=== PATIENT | female | born 1935 | race Caucasian/White ===

== ENCOUNTER 2016-06-25 14:39 | Emergency (ER) | payer MEDICARE, BC ==
[2016-06-25] MEDS ORDERED: SODIUM CHLORIDE 0.9% 500 ML IV STA (15:33)
[2016-06-25] MEDS ORDERED: METOPROLOL TARTRATE 5 MG/5 ML VIAL IVP STA ×3 (15:34→18:08)
[2016-06-25] MEDS ORDERED: LORazepam 2 MG/ML SYRINGE IV STA (15:35)
--- NOTE | 2016-06-25 15:43 | ED ---
General Adult HPI <VirgilThang - Last Filed: 06/25/16 19:30> - General Source: patient, RN notes reviewed Mode of arrival: ambulatory Limitations: no limitations <Bel Macias - Last Filed: 06/25/16 19:38> - General Chief complaint: Recheck/Abnormal Lab/Rx Stated complaint: High Blood Pressure Time Seen by Provider: 06/25/16 15:23 - History of Present Illness Initial comments: 80-year-old female presents to the emergency department with a chief complaint of hypertension. Patient states that she's been having HTN for the last few months. Patient states that she has been working with her doctor that he has been changing her medicine. Patient states her blood pressures have been doing okay but over the last she's noticed some increase in today went up to 200 so she thought she should be seen. Patient states she doesn't have any pain. Patient states that she hasn't had any fever or chills with this. Patient states her the there has been some increased stress. Patient states she just wanted make sure that everything was okay.Patient denies any recent fever, chills, shortness of breath, chest pain, back pain, abdominal pain, nausea vomiting, numbness or tingling, dysuria or hematuria, constipation or diarrhea, headaches or visual changes, or any other current symptoms. (Bel Macias) - Related Data Home Medications Medication Instructions Recorded Confirmed ALPRAZolam [Xanax] 0.25 mg PO DAILY PRN 06/25/16 06/25/16 Atenolol [Tenormin] 25 mg PO DAILY 06/25/16 06/25/16 Focus Macula Pro Vitamin 1 tab PO DAILY 06/25/16 06/25/16 Irbesartan 75 mg PO BID 06/25/16 06/25/16 Levothyroxine Sodium [Synthroid] 88 mcg PO DAILY 06/25/16 06/25/16 amLODIPine [Norvasc] 5 mg PO DAILY 06/25/16 06/25/16 hydrALAZINE HCL 25 mg PO TID 06/25/16 06/25/16 Allergies Allergy/AdvReac Type Severity Reaction Status Date / Time doxycycline Allergy Dizziness Verified 06/25/16 16:15 CAMILO Inhibitors AdvReac Flushed Verified 06/25/16 16:15 Review of Systems ROS Other: All systems not noted in ROS Statement are negative. <Thang Herman - Last Filed: 06/25/16 19:30> ROS Other: All systems not noted in ROS Statement are negative. <Bel Macias - Last Filed: 06/25/16 19:38> ROS Statement: Those systems with pertinent positive or pertinent negative responses have been documented in the HPI. Past Medical History Past Medical History: Hypertension, Thyroid Disorder History of Any Multi-Drug Resistant Organisms: None Reported Past Surgical History: Cholecystectomy, Orthopedic Surgery, Tonsillectomy Additional Past Surgical History / Comment(s): Left rotator cuff surgery; Thyroid Surgery Past Psychological History: No Psychological Hx Reported Smoking Status: Never smoker Past Alcohol Use History: None Reported Past Drug Use History: None Reported <Bel Macias - Last Filed: 06/25/16 19:38> General Exam <Thang Herman - Last Filed: 06/25/16 19:30> Limitations: no limitations <Bel Macias - Last Filed: 06/25/16 19:38> - General Exam Comments Initial Comments: General: The patient is awake and alert, in no distress, and does not appear acutely ill. Eye: Pupils are equal, round and reactive to light, extra-ocular movements are intact; there is normal conjunctiva bilaterally. No signs of icterus. Ears, nose, mouth and throat: There are moist mucous membranes and no oral lesions. Neck: The neck is supple, there is no tenderness. Cardiovascular: There is a regular rate and rhythm. No murmur, rub or gallop is appreciated. Respiratory: Lungs are clear to auscultation, respirations are non-labored, breath sounds are equal. No wheezes, stridor, rales, or rhonchi. Gastrointestinal: Soft, non-distended, non-tender abdomen without masses or organomegaly noted. There is no rebound or guarding present. No CVA tenderness. Bowel sounds are unremarkable. Back: There is no tenderness to palpation in the midline. There is no obvious deformity. No rashes noted. Musculoskeletal: Normal ROM, no tenderness, There is no pedal edema. There is no calf tenderness or swelling. Sensation intact. Pulses equal bilaterally 2+. Neurological: CN II-XII intact, There are no obvious motor or sensory deficits. Coordination appears grossly intact. Speech is normal. Skin: Skin is warm and dry and no rashes or lesions are noted. Psychiatric: Cooperative, appropriate mood & affect, normal judgment. (Bel Macias) Course <Thang Herman - Last Filed: 06/25/16 19:30> <Bel Macias - Last Filed: 06/25/16 19:38> Vital Signs 06/25/16 06/25/16 06/25/16 14:51 16:23 16:55 Temperature 97.1 F L Pulse Rate 86 70 68 Respiratory 18 18 16 Rate Blood Pressure 205/97 200/96 183/86 O2 Sat by Pulse 96 9 L 98 Oximetry 06/25/16 06/25/16 06/25/16 17:11 17:47 18:37 Temperature Pulse Rate 69 65 70 Respiratory 16 18 16 Rate Blood Pressure 188/91 181/84 157/74 O2 Sat by Pulse 99 95 Oximetry - Reevaluation(s) Reevaluation #1: 06/25/16 17:52 While doing blood pressures there was a noticeable 20 point describing CBC and the left arm and the right arm. A CT of the aorta was ordered. (Bel Macias) Reevaluation #2: 06/25/16 17:53 Patient was over ordered Lopressor to help with blood pressure that did not improve the patient's blood pressure. At this time we will add hydralazine and repeat the blood pressure. (Bel Macias) Reevaluation #3: 06/25/16 19:36 This time patient's blood pressure has improved. 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 Patient was reevaluated by myself, Dr. Herman. Patient states her back discomfort was above the left CVA region and mild. Patient denies ever having any abdominal discomfort or right leg problems. Right femoral and dorsalis pedis and posterior tibial pulses 2/4 bilateral. Refill less than 2 seconds. Good strength. Case was discussed in detail with vascular surgeon, Dr. Hassan. She does not feel this is emergent and will follow-up with the patient in the office. (Thang Herman) 80-year-old female presents emergency Department chief complaint of hypertension. At this time the blood pressure has improved. A CAT scan was reviewed that does show a dissection at the iliac. However there is flow going and Dr. Ryland lisa was contacted who states that they can follow up with the outpatient vascular in the next week. The patient was discussed with this. We discussed continuing to support pressure medication and following up with her doctor regarding hypertension. The patient stated that she understood and is in agreement with the plan. Patient will be discharged. (Bel Macias) - Lab Data Lab Results 06/25/16 06/25/16 06/25/16 Range/Units 16:22 16:22 17:39 WBC 6.3 (3.8-10.6) k/uL RBC 5.11 (3.80-5.40) m/uL Hgb 14.4 (11.4-16.0) gm/dL Hct 44.4 (34.0-46.0) % MCV 86.9 (80.0-100.0) fL MCH 28.2 (25.0-35.0) pg MCHC 32.5 (31.0-37.0) g/dL RDW 14.0 (11.5-15.5) % Plt Count 179 (150-450) k/uL Neutrophils % 77 % Lymphocytes % 4 % Monocytes % 9 % Eosinophils % 8 % Basophils % 1 % Neutrophils # 4.9 (1.3-7.7) k/uL Lymphocytes # 0.3 L (1.0-4.8) k/uL Monocytes # 0.5 (0-1.0) k/uL Eosinophils # 0.5 (0-0.7) k/uL Basophils # 0.0 (0-0.2) k/uL Sodium 144 (137-145) mmol/L Potassium 3.8 (3.5-5.1) mmol/L Chloride 104 (98-107) mmol/L Carbon Dioxide 29 (22-30) mmol/L Anion Gap 11 mmol/L BUN 16 (7-17) mg/dL Creatinine 0.82 (0.52-1.04) mg/dL Est GFR (MDRD) Af Amer >60 (>60 ml/min/1.73 sqM) Est GFR (MDRD) Non-Af >60 (>60 ml/min/1.73 sqM) Glucose 97 (74-99) mg/dL Calcium 9.7 (8.4-10.2) mg/dL Total Bilirubin 0.6 (0.2-1.3) mg/dL AST 56 H (14-36) U/L ALT 58 H (9-52) U/L Alkaline Phosphatase 108 (38-126) U/L Total Protein 7.8 (6.3-8.2) g/dL Albumin 4.4 (3.5-5.0) g/dL Urine Color Light Yellow Urine Appearance Clear (Clear) Urine pH 7.0 (5.0-8.0) Ur Specific [place] 1.005 (1.001-1.035) Urine Protein Trace H (Negative) Urine Glucose (UA) Negative (Negative) Urine Ketones Negative (Negative) Urine Blood Negative (Negative) Urine Nitrate Negative (Negative) Urine Bilirubin Negative (Negative) Urine Urobilinogen <2.0 (<2.0) mg/dL Ur Leukocyte Esterase Negative (Negative) Disposition <Thang Herman - Last Filed: 06/25/16 19:30> Time of Disposition: 19:38 <Bel Macias - Last Filed: 06/25/16 19:38> Clinical Impression: Hypertension, Iliac artery dissection Disposition: HOME SELF-CARE Condition: Stable Instructions: Hypertension (ED) Additional Instructions: Please use medication as discussed. Please follow up with family doctor if symptoms have not improved over the next two days. Please return to the emergency room if your symptoms increase or worsen or for any other concerns. Referrals: Barrett Taveras MD [Primary Care Provider] - 1-2 days Shannan aHssan MD [STAFF PHYSICIAN] - 1-2 days
[2016-06-25 16:40] LABS: Basophils % (A) 1 %; CH 28.9; CHCM 33.3; Eosinophils # (A) 0.5 k/uL (0-0.7); Eosinophils % (A) 8 %; HCT 44.4 % (34.0-46.0); HDW 2.38; HGB 14.4 gm/dL (11.4-16.0); Luc # (Auto) 0.07; Luc % (Auto) 1; Lymphocytes # (A) 0.3 k/uL (1.0-4.8); Lymphocytes % (A) 4 %; MCH 28.2 pg (25.0-35.0); MCHC 32.5 g/dL (31.0-37.0); MCV 86.9 fL (80.0-100.0); Mean Platelet Volume 6.7; Monocytes # (A) 0.5 k/uL (0-1.0); Monocytes % (A) 9 %; Neutrophils # (A) 4.9 k/uL (1.3-7.7); Neutrophils % (A) 77 %; RBC 5.11 m/uL (3.80-5.40); WBC 6.3 k/uL (3.8-10.6); WBC (Perox) 6.69
[2016-06-25 16:51] LABS: ALT 58 U/L (9-52); AST 56 U/L (14-36); Alkaline Phosphatase 108 U/L (38-126); Anion Gap 11 mmol/L; Blood Urea Nitrogen 16 mg/dL (7-17); Calcium 9.7 mg/dL (8.4-10.2); Carbon Dioxide 29 mmol/L (22-30); Chloride 104 mmol/L (98-107); Glucose 97 mg/dL (74-99); Non-African American GFR(MDRD) >60 (>60 ml/min/1.73 sqM); Potassium 3.8 mmol/L (3.5-5.1); Sodium 144 mmol/L (137-145); Total Bilirubin 0.6 mg/dL (0.2-1.3); Total Protein 7.8 g/dL (6.3-8.2)
[2016-06-25] MEDS ORDERED: ACETAMINOPHEN TAB 500 MG TAB PO STA (16:56)
[2016-06-25] MEDS ORDERED: METOPROLOL TARTRATE 5 MG/5 ML VIAL IVP SCH ×2 (17:00→18:00)
[2016-06-25] MEDS ORDERED: RX INFO: IV CONTRAST WAS GIVEN 1 EACH MISC MISCELLANE PRN (17:46)
[2016-06-25 17:47] LABS: Appearance,Urine Clear (Clear); Bilirubin,Urine Negative (Negative); Glucose,Urine (UA) Negative (Negative); Ketones,Urine Negative (Negative); Leukocyte Esterase,Urine Negative (Negative); Nitrite,Urine Negative (Negative); Protein,Urine Trace (Negative); Specific Gravity,Urine 1.005 (1.001-1.035); UA Billing (MACRO vs. MICRO) CHEM; Urobilinogen,Urine <2.0 mg/dL (<2.0)
[2016-06-25] MEDS ORDERED: hydrALAZINE HCL 20 MG/ML 1 ML VIAL IVP STA (17:49)
--- NOTE | 2016-06-25 18:58 | CT ---
CT thoracic and abdominal aorta HISTORY: Hypertension, chest pain Helical acquisition through the chest pre- and post administration of 100 cc Omni 350 IV. Three-dimen sional reconstructions performed on an alternate workstation Interstitial changes are present within the lungs. Coronary artery calcifications are present. Abdominal aorta measures approximately 3.5 cm at the root, 3.4 cm in the ascending aorta, 2.6 cm prox imal descending aorta, 2.4 cm at the aortic hiatus. The infrarenal abdominal aorta measures approxima tely 2.0 cm in greatest dimension, common iliac artery on the right measures 19 mm proximally, limite d dissection is suspected at this level, the common iliac artery proximally on the right. Proximal il iac artery on the left measures 12 mm. External and internal iliac arteries are present are patent pr oximally. The inferior mesenteric artery is thought to be occluded proximally. Superior mesenteric ar lisa, celiac axis, renal arteries are patent. Supraaortic branch vessels are patent, there is a three -vessel arch. 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
[2016-06-25 20:01] VITALS: BP 156/82; PULSE 69; RESP 20; TEMP 98.2
== END 2016-06-25 20:02 | disposition home or self-care (01) ==
LOC: EC 14:39
DX: I10 Essential (primary) hypertension (principal); I77.72 Dissection of iliac artery; Z79.899 Other long term (current) drug therapy; Z88.1 Allergy status to other antibiotic agents; Z88.8 Allergy status to other drugs, medicaments and biological substances
CPT/HCPCS: 99284; 96374; 96375; 96376; 96361; 36415; 80053; 85025; 81003; 75635; 71275; J2060; Q9967

== ENCOUNTER 2017-12-12 22:09 | Inpatient (IN) | payer MEDICARE, BC ==
[2017-12-13] MEDS ORDERED: ACETAMINOPHEN TAB 325 MG TAB PO STA (00:36)
[2017-12-13] MEDS ORDERED: SODIUM CHLORIDE 0.9% 1,000 ML IV ONE ×2 (00:36→09:59)
[2017-12-13] MEDS ORDERED: ONDANSETRON 4 MG/2 ML VIAL IVP STA (00:36)
--- NOTE | 2017-12-13 00:54 | ED ---
General Adult HPI - General Chief complaint: Nausea/Vomiting/Diarrhea Stated complaint: vomiting/fever Time Seen by Provider: 12/13/17 00:18 Source: patient Mode of arrival: wheelchair Limitations: no limitations - History of Present Illness Initial comments: 82-year-old female patient presents the emergency department today for evaluation of vomiting, burning upper abdominal pain, and fever. Patient states that she developed burning upper abdominal pain earlier in the day. States that she had to poached eggs for dinner and after that started to have vomiting. Patient states that she has vomited 2-3 times. Patient states she continues to have burning upper abdominal pain. States she is having generalized body aches. States that she has not taken anything for pain or fever. States she has not had any diarrhea with this. Denies any hematemesis. States that she has had a cholecystectomy but no other surgeries to her abdomen. Patient denies any cough, nasal congestion, sore throat, ear pain, chest pain, or shortness of breath. Patient denies any recent rash, numbness, tingling, dizziness, weakness, hematuria, dysuria, urinary urgency, urinary frequency, headache, visual changes, or any other complaints. - Related Data Home Medications Medication Instructions Recorded Confirmed ALPRAZolam [Xanax] 0.25 mg PO DAILY PRN 06/25/16 12/13/17 Atenolol [Tenormin] 25 mg PO DAILY 06/25/16 06/25/16 Focus Macula Pro Vitamin 1 tab PO DAILY 06/25/16 12/13/17 Irbesartan 75 mg PO BID 06/25/16 12/13/17 Levothyroxine Sodium [Synthroid] 88 mcg PO DAILY 06/25/16 12/13/17 amLODIPine [Norvasc] 5 mg PO DAILY 06/25/16 12/13/17 hydrALAZINE HCL 25 mg PO TID 06/25/16 12/13/17 Atorvastatin [Lipitor] 20 mg PO DAILY 12/13/17 12/13/17 Carvedilol [Coreg*] 12/13/17 Allergies Allergy/AdvReac Type Severity Reaction Status Date / Time clindamycin Allergy Nausea & Verified 12/12/17 22:39 Vomiting & Diarrhea doxycycline Allergy Dizziness Verified 12/12/17 22:37 sulfamethoxazole Allergy Unknown Verified 12/12/17 22:39 [From Bactrim] trimethoprim [From Bactrim] Allergy Unknown Verified 12/12/17 22:39 CAMILO Inhibitors AdvReac Flushed Verified 12/12/17 22:37 Review of Systems ROS Statement: Those systems with pertinent positive or pertinent negative responses have been documented in the HPI. ROS Other: All systems not noted in ROS Statement are negative. Past Medical History Past Medical History: Hypertension, Thyroid Disorder History of Any Multi-Drug Resistant Organisms: None Reported Past Surgical History: Cholecystectomy, Orthopedic Surgery, Tonsillectomy Additional Past Surgical History / Comment(s): Left rotator cuff surgery; Thyroid Surgery Past Psychological History: No Psychological Hx Reported Smoking Status: Never smoker Past Alcohol Use History: None Reported Past Drug Use History: None Reported General Exam Limitations: no limitations General appearance: alert, in no apparent distress, other (This is a well- developed, well-nourished elderly female patient in no acute distress. Vital signs upon presentation are temperature 100F, pulse 102, respirations 18, blood pressure 182/77, pulse ox 93% on room air.) Eye exam: Present: normal appearance, PERRL, EOMI. Absent: scleral icterus, conjunctival injection, periorbital swelling ENT exam: Present: normal exam, normal oropharynx, mucous membranes moist, TM's normal bilaterally Neck exam: Present: normal inspection. Absent: tenderness, meningismus, lymphadenopathy Respiratory exam: Present: normal lung sounds bilaterally. Absent: respiratory distress, wheezes, rales, rhonchi, stridor Cardiovascular Exam: Present: regular rate, normal rhythm, normal heart sounds. Absent: systolic murmur, diastolic murmur, rubs, gallop, clicks GI/Abdominal exam: Present: soft, tenderness (Midepigastric tenderness. Right lower quadrant tenderness.), normal bowel sounds. Absent: distended, guarding, rebound, rigid Neurological exam: Present: alert, oriented X3, CN II-XII intact Psychiatric exam: Present: normal affect, normal mood Skin exam: Present: warm, dry, intact, normal color. Absent: rash Course Vital Signs 12/12/17 12/13/17 12/13/17 22:40 02:28 03:19 Temperature 100 F H 99.4 F 99.4 F Pulse Rate 102 H 82 86 Respiratory 18 18 18 Rate Blood Pressure 182/77 164/72 154/67 O2 Sat by Pulse 93 L 97 97 Oximetry EKG Findings - EKG Comments: EKG Findings:: EKG was obtained at 0105 shows normal sinus rhythm with a ventricular rate of 94, MT interval 170, QRS duration 84, QT 364, QTC 455. No evidence of ST elevation or depression. Medical Decision Making - Medical Decision Making 82-year-old female patient presented to the emergency department today for evaluation of vomiting, fever, and abdominal discomfort. Physical examination did reveal tenderness over McBurney's point. Labs reviewed and showed an elevated white blood cell count of 14,000. CT of the abdomen and pelvis was obtained and did show some inflammatory changes involving the cecum but no definite appendicitis. My attending Dr. Ramsey did discuss the case with the surgeon on-call Dr. Buenrostro who agrees to admit patient for further evaluation. Patient be started on Zosyn. She will be made nothing by mouth. Discussed results and findings with the patient, she verbalizes understanding and agrees with this plan. - Lab Data Result diagrams: 12/13/17 00:45 12/13/17 00:45 Lab Results 12/13/17 12/13/17 12/13/17 Range/Units 00:45 00:45 00:45 WBC 14.7 H (3.8-10.6) k/uL RBC 4.47 (3.80-5.40) m/uL Hgb 12.6 (11.4-16.0) gm/dL Hct 38.6 (34.0-46.0) % MCV 86.4 (80.0-100.0) fL MCH 28.2 (25.0-35.0) pg MCHC 32.7 (31.0-37.0) g/dL RDW 13.9 (11.5-15.5) % Plt Count 154 (150-450) k/uL Neutrophils % 92 % Lymphocytes % 2 % Monocytes % 5 % Eosinophils % 1 % Basophils % 0 % Neutrophils # 13.4 H (1.3-7.7) k/uL Lymphocytes # 0.3 L (1.0-4.8) k/uL Monocytes # 0.7 (0-1.0) k/uL Eosinophils # 0.1 (0-0.7) k/uL Basophils # 0.0 (0-0.2) k/uL PT (9.0-12.0) sec INR (<1.2) APTT (22.0-30.0) sec Sodium 140 (137-145) mmol/L Potassium 3.9 (3.5-5.1) mmol/L Chloride 104 (98-107) mmol/L Carbon Dioxide 25 (22-30) mmol/L Anion Gap 11 mmol/L BUN 40 H (7-17) mg/dL Creatinine 1.20 H (0.52-1.04) mg/dL Est GFR (CKD-EPI)AfAm 48 (>60 ml/min/1.73 sqM) Est GFR (CKD-EPI)NonAf 42 (>60 ml/min/1.73 sqM) Glucose 132 H (74-99) mg/dL Plasma Lactic Acid Edvin (0.7-2.0) mmol/L Calcium 9.7 (8.4-10.2) mg/dL Total Bilirubin 0.6 (0.2-1.3) mg/dL AST 25 (14-36) U/L ALT 35 (9-52) U/L Alkaline Phosphatase 70 (38-126) U/L Total Creatine Kinase 91 (30-135) U/L CK-MB (CK-2) 0.6 (0.0-2.4) ng/mL CK-MB (CK-2) Rel Index 0.7 Troponin I <0.012 (0.000-0.034) ng/mL Total Protein 7.1 (6.3-8.2) g/dL Albumin 4.4 (3.5-5.0) g/dL Amylase 67 (30-110) U/L Lipase 175 (23-300) U/L Urine Color Urine Appearance (Clear) Urine pH (5.0-8.0) Ur Specific [place] (1.001-1.035) Urine Protein (Negative) Urine Glucose (UA) (Negative) Urine Ketones (Negative) Urine Blood (Negative) Urine Nitrite (Negative) Urine Bilirubin (Negative) Urine Urobilinogen (<2.0) mg/dL Ur Leukocyte Esterase (Negative) Urine RBC (0-5) /hpf Urine WBC (0-5) /hpf Urine Bacteria (None) /hpf Urine Mucus (None) /hpf 12/13/17 12/13/17 12/13/17 Range/Units 01:02 01:02 02:20 WBC (3.8-10.6) k/uL RBC (3.80-5.40) m/uL Hgb (11.4-16.0) gm/dL Hct (34.0-46.0) % MCV (80.0-100.0) fL MCH (25.0-35.0) pg MCHC (31.0-37.0) g/dL RDW (11.5-15.5) % Plt Count (150-450) k/uL Neutrophils % % Lymphocytes % % Monocytes % % Eosinophils % % Basophils % % Neutrophils # (1.3-7.7) k/uL Lymphocytes # (1.0-4.8) k/uL Monocytes # (0-1.0) k/uL Eosinophils # (0-0.7) k/uL Basophils # (0-0.2) k/uL PT 10.1 (9.0-12.0) sec INR 1.0 (<1.2) APTT 21.0 L (22.0-30.0) sec Sodium (137-145) mmol/L Potassium (3.5-5.1) mmol/L Chloride (98-107) mmol/L Carbon Dioxide (22-30) mmol/L Anion Gap mmol/L BUN (7-17) mg/dL Creatinine (0.52-1.04) mg/dL Est GFR (CKD-EPI)AfAm (>60 ml/min/1.73 sqM) Est GFR (CKD-EPI)NonAf (>60 ml/min/1.73 sqM) Glucose (74-99) mg/dL Plasma Lactic Acid Edvin 1.0 (0.7-2.0) mmol/L Calcium (8.4-10.2) mg/dL Total Bilirubin (0.2-1.3) mg/dL AST (14-36) U/L ALT (9-52) U/L Alkaline Phosphatase (38-126) U/L Total Creatine Kinase (30-135) U/L CK-MB (CK-2) (0.0-2.4) ng/mL CK-MB (CK-2) Rel Index Troponin I (0.000-0.034) ng/mL Total Protein (6.3-8.2) g/dL Albumin (3.5-5.0) g/dL Amylase (30-110) U/L Lipase (23-300) U/L Urine Color Yellow Urine Appearance Clear (Clear) Urine pH 5.5 (5.0-8.0) Ur Specific [place] 1.014 (1.001-1.035) Urine Protein 1+ H (Negative) Urine Glucose (UA) Negative (Negative) Urine Ketones Trace H (Negative) Urine Blood Negative (Negative) Urine Nitrite Negative (Negative) Urine Bilirubin Negative (Negative) Urine Urobilinogen <2.0 (<2.0) mg/dL Ur Leukocyte Esterase Small H (Negative) Urine RBC 1 (0-5) /hpf Urine WBC 2 (0-5) /hpf Urine Bacteria Rare H (None) /hpf Urine Mucus Rare H (None) /hpf - Radiology Data Radiology results: report reviewed, image reviewed CT of the abdomen and pelvis without contrast was obtained. Report was reviewed in its entirety. Impression by Dr. Lovell shows mild scarring and atelectasis at the posterior lung bases. No renal stone or obstruction. Cardiomegaly. Inflammatory changes in the right mid abdomen posterior to the cecum. This could relate focal colitis. Do not see distinct inflammatory changes involving the appendix. Appendicitis is not entirely excluded. I do not see evidence for renal stone or obstruction. KUB x-ray of the abdomen was obtained. The shoulder near density at the right lung bases. There are clips from cholecystectomy. There is no sign of intestinal structure pneumoperitoneum. Fecal pattern is normal. There are mild lumbar levoscoliosis. Impression by Dr. Lovell shows mild linear infiltrate and atelectasis of the right lung base. Disposition Clinical Impression: Appendicitis Disposition: ADMITTED IP TO THIS [facility] Condition: Serious Decision to Admit Reason: Admit from EC Decision Date: 12/13/17 Decision Time: 02:48
[2017-12-13 00:57] LABS: Basophils % (A) 0 %; Eosinophils # (A) 0.1 k/uL (0-0.7); Eosinophils % (A) 1 %; HCT 38.6 % (34.0-46.0); HGB 12.6 gm/dL (11.4-16.0); Lymphocytes # (A) 0.3 k/uL (1.0-4.8); Lymphocytes % (A) 2 %; MCH 28.2 pg (25.0-35.0); MCHC 32.7 g/dL (31.0-37.0); MCV 86.4 fL (80.0-100.0); Mean Platelet Volume 6.4; Monocytes # (A) 0.7 k/uL (0-1.0); Monocytes % (A) 5 %; Neutrophils # (A) 13.4 k/uL (1.3-7.7); Neutrophils % (A) 92 %; Platelet Count 154 k/uL (150-450); RBC 4.47 m/uL (3.80-5.40); RDW 13.9 % (11.5-15.5); WBC 14.7 k/uL (3.8-10.6)
[2017-12-13 01:10] LABS: Albumin 4.4 g/dL (3.5-5.0); Calcium 9.7 mg/dL (8.4-10.2); Potassium 3.9 mmol/L (3.5-5.1); Total Bilirubin 0.6 mg/dL (0.2-1.3); Total Protein 7.1 g/dL (6.3-8.2)
--- NOTE | 2017-12-13 01:24 | XR ---
EXAMINATION TYPE: XR KUB DATE OF EXAM: 12/13/2017 COMPARISON: NONE HISTORY: Abdominal pain and vomiting TECHNIQUE: 2 views FINDINGS: 2 upright views were obtained and show linear density at the right lung base. There are cli ps from cholecystectomy. There is no sign of intestinal obstruction or pneumoperitoneum. Fecal patter n is normal. There is mild lumbar levoscoliosis. IMPRESSION: There is some linear infiltrate and atelectasis at the right lung base.
[2017-12-13 01:33] LABS: Creatine Kinase 91 U/L (30-135)
[2017-12-13 01:35] LABS: Prothrombin Time 10.1 sec (9.0-12.0)
[2017-12-13 01:45] LABS: Creatine Kinase MB 0.6 ng/mL (0.0-2.4); Troponin I <0.012 ng/mL (0.000-0.034)
--- NOTE | 2017-12-13 02:04 | CT ---
EXAMINATION TYPE: CT abdomen pelvis wo con DATE OF EXAM: 12/13/2017 COMPARISON: None HISTORY: No prior, gen abd pain and vomiting, chronic kidney disease CT DLP: 327.90 mGycm Automated exposure control for dose reduction was used. TECHNIQUE: Helical acquisition of images was performed from the lung bases through the pelvis. FINDINGS: There is subsegmental atelectasis and scarring at the lung bases. Heart is enlarged. There is no angel cardial effusion. There is no pleural effusion. Liver shows no focal defect. There are clips from cholecystectomy. There are small calcified splenic granuloma. There is no evidence of pancreatic mass. There is no adrenal mass. Kidneys have normal size and contour. There is no hydronephrosis. There is no retroperitoneal adenopathy. Abdominal aorta is atheromatous. There is some fat stranding around th e cecum. The appendix however is not dilated. The appendix wall is not thickened. There is small amou nt of fluid in the right paracolic gutter. There is mild thickening of the posterior wall of the cecu m. The terminal ileum appears normal. Bladder distends smoothly. Abdominal aorta is atheromatous. There is no ascites. There is no sign of free air. There are spondylotic changes in the lumbar spine. There is no compression fracture. Uterus is anteverted. I see no pelvic mass. IMPRESSION: THERE IS MILD SCARRING AND ATELECTASIS AT THE POSTERIOR LUNG BASES. NO RENAL STONE OR OBSTRUCTION. CARDIOMEGALY. INFLAMMATORY CHANGES IN THE RIGHT MID ABDOMEN POSTERIOR TO THE CECUM THAT COULD RELATE TO FOCAL COLIT IS. I DO NOT SEE DISTINCT INFLAMMATORY CHANGES INVOLVING THE APPENDIX. APPENDICITIS IS NOT ENTIRELY E XCLUDED. I DO NOT SEE EVIDENCE FOR RENAL STONE OR OBSTRUCTION.
[2017-12-13] MEDS ORDERED: PIPERACILLIN-TAZOBACTAM 3.375 GM in DEXTROSE/WATER 1 50ML.BAG IVPB STA (02:25)
[2017-12-13 02:42] LABS: Appearance,Urine Clear (Clear); Bacteria,Urine Rare /hpf; Bilirubin,Urine Negative (Negative); Blood,Urine Negative (Negative); Color,Urine Yellow; Glucose,Urine (UA) Negative (Negative); Ketones,Urine Trace (Negative); Leukocyte Esterase,Urine Small (Negative); Mucus,Urine Rare /hpf; Nitrite,Urine Negative (Negative); PH, Urine 5.5 (5.0-8.0); Protein,Urine 1+ (Negative); RBC,Urine 1 /hpf (0-5); Specific Gravity,Urine 1.014 (1.001-1.035); Urobilinogen,Urine <2.0 mg/dL (<2.0); WBC,Urine 2 /hpf (0-5)
[2017-12-13] MEDS ORDERED: NALOXONE 0.4 MG/ML 1 ML VIAL IV PRN (02:44)
[2017-12-13] MEDS ORDERED: ONDANSETRON 4 MG/2 ML VIAL IVP PRN (02:44)
[2017-12-13] MEDS ORDERED: SODIUM CHLORIDE 0.9% 1,000 ML IV SCH (02:45)
[2017-12-13 03:52] VITALS: BMI 25.0
[2017-12-13] MEDS ORDERED: ACETAMINOPHEN TAB 325 MG TAB PO PRN (03:54)
[2017-12-13] MEDS ORDERED: metroNIDAZOLE-NS PMX 500 MG in SALINE 1 100ML.BAG IVPB STA (09:59)
[2017-12-13] MEDS ORDERED: LEVOFLOXACIN 500MG-D5W PMX 500 MG in DEXTROSE/WATER 1 100ML.BAG IVPB STA (09:59)
--- NOTE | 2017-12-13 10:11 | P.GSHP ---
History of Present Illness H&P Date: 12/13/17 HPI: Patient presented yesterday with new onset diffuse abdominal pain. She reported on evaluation by the ED team, she had right lower quadrant pain. She had a CT scan performed with findings of colitis where appendicitis could not be excluded her hence admission. She admission, her abdominal pain has moderately improved. Her right lower quadrant pain has also improved. ABDOMEN: Soft, nondistended. Minimal right lower quadrant pain. No peritonitis. STUDIES: CT scan reviewed personally with finding of colitis. Appendix is visualized and without dilation or appendicitis. PLAN: 1. Treatment for colitis described as she has clinically already improved. 2. Start diet. 3. Repeat labs. 4. Likely discharge today pending labs Past Medical History Past Medical History: Hypertension, Thyroid Disorder History of Any Multi-Drug Resistant Organisms: None Reported Past Surgical History: Cholecystectomy, Orthopedic Surgery, Tonsillectomy Additional Past Surgical History / Comment(s): Left rotator cuff surgery; Thyroid Surgery Past Psychological History: No Psychological Hx Reported Smoking Status: Never smoker Past Alcohol Use History: None Reported Past Drug Use History: None Reported - Past Family History Mother Family Medical History: Congestive Heart Failure (CHF) Father Family Medical History: CVA/TIA Medications and Allergies Home Medications Medication Instructions Recorded Confirmed Type ALPRAZolam [Xanax] 0.25 mg PO DAILY PRN 06/25/16 12/13/17 History Focus Macula Pro Vitamin 1 tab PO DAILY 06/25/16 12/13/17 History Irbesartan 75 mg PO BID 06/25/16 12/13/17 History Levothyroxine Sodium [Synthroid] 88 mcg PO DAILY 06/25/16 12/13/17 History amLODIPine [Norvasc] 5 mg PO DAILY 06/25/16 12/13/17 History Atorvastatin [Lipitor] 20 mg PO DAILY 12/13/17 12/13/17 History Carvedilol [Coreg*] 12.5 mg PO HS 12/13/17 12/13/17 History Carvedilol [Coreg*] 25 mg PO QAM 12/13/17 12/13/17 History hydrALAZINE HCL [Apresoline] 20 mg PO BID 12/13/17 12/13/17 History Allergies Allergy/AdvReac Type Severity Reaction Status Date / Time clindamycin Allergy Nausea & Verified 07/11/18 22:39 Vomiting & Diarrhea doxycycline Allergy Dizziness Verified 12/12/17 22:37 sulfamethoxazole Allergy Unknown Verified 12/12/17 22:39 [From Bactrim] trimethoprim [From Bactrim] Allergy Unknown Verified 12/12/17 22:39 CAMILO Inhibitors AdvReac Flushed Verified 12/12/17 22:37 Surgical - Exam Vital Signs Temp Pulse Resp BP Pulse Ox 100 F H 102 H 18 182/77 93 L 12/12/17 22:40 12/12/17 22:40 12/12/17 22:40 12/12/17 22:40 12/12/17 22:40 Results - Labs 12/13/17 00:45 12/13/17 00:45 Abnormal Lab Results - Last 24 Hours (Table) 12/13/17 12/13/17 12/13/17 Range/Units 00:45 00:45 01:02 WBC 14.7 H (3.8-10.6) k/uL Neutrophils # 13.4 H (1.3-7.7) k/uL Lymphocytes # 0.3 L (1.0-4.8) k/uL APTT 21.0 L (22.0-30.0) sec BUN 40 H (7-17) mg/dL Creatinine 1.20 H (0.52-1.04) mg/dL Glucose 132 H (74-99) mg/dL Urine Protein (Negative) Urine Ketones (Negative) Ur Leukocyte Esterase (Negative) Urine Bacteria (None) /hpf Urine Mucus (None) /hpf 12/13/17 Range/Units 02:20 WBC (3.8-10.6) k/uL Neutrophils # (1.3-7.7) k/uL Lymphocytes # (1.0-4.8) k/uL APTT (22.0-30.0) sec BUN (7-17) mg/dL Creatinine (0.52-1.04) mg/dL Glucose (74-99) mg/dL Urine Protein 1+ H (Negative) Urine Ketones Trace H (Negative) Ur Leukocyte Esterase Small H (Negative) Urine Bacteria Rare H (None) /hpf Urine Mucus Rare H (None) /hpf Diabetes panel 12/13/17 Range/Units 00:45 Sodium 140 (137-145) mmol/L Potassium 3.9 (3.5-5.1) mmol/L Chloride 104 (98-107) mmol/L Carbon Dioxide 25 (22-30) mmol/L BUN 40 H (7-17) mg/dL Creatinine 1.20 H (0.52-1.04) mg/dL Glucose 132 H (74-99) mg/dL Calcium 9.7 (8.4-10.2) mg/dL AST 25 (14-36) U/L ALT 35 (9-52) U/L Alkaline Phosphatase 70 (38-126) U/L Total Protein 7.1 (6.3-8.2) g/dL Albumin 4.4 (3.5-5.0) g/dL Calcium panel 12/13/17 Range/Units 00:45 Calcium 9.7 (8.4-10.2) mg/dL Albumin 4.4 (3.5-5.0) g/dL Pituitary panel 12/13/17 Range/Units 00:45 Sodium 140 (137-145) mmol/L Potassium 3.9 (3.5-5.1) mmol/L Chloride 104 (98-107) mmol/L Carbon Dioxide 25 (22-30) mmol/L BUN 40 H (7-17) mg/dL Creatinine 1.20 H (0.52-1.04) mg/dL Glucose 132 H (74-99) mg/dL Calcium 9.7 (8.4-10.2) mg/dL Adrenal panel 12/13/17 Range/Units 00:45 Sodium 140 (137-145) mmol/L Potassium 3.9 (3.5-5.1) mmol/L Chloride 104 (98-107) mmol/L Carbon Dioxide 25 (22-30) mmol/L BUN 40 H (7-17) mg/dL Creatinine 1.20 H (0.52-1.04) mg/dL Glucose 132 H (74-99) mg/dL Calcium 9.7 (8.4-10.2) mg/dL Total Bilirubin 0.6 (0.2-1.3) mg/dL AST 25 (14-36) U/L ALT 35 (9-52) U/L Alkaline Phosphatase 70 (38-126) U/L Total Protein 7.1 (6.3-8.2) g/dL Albumin 4.4 (3.5-5.0) g/dL
[2017-12-13] MEDS ORDERED: PIPERACILLIN-TAZOBACTAM 3.375 GM in DEXTROSE/WATER 1 50ML.BAG IVPB SCH (11:00)
[2017-12-13 12:52] LABS: Basophils % (A) 0 %; Eosinophils # (A) 0.1 k/uL (0-0.7); Eosinophils % (A) 1 %; HCT 34.9 % (34.0-46.0); HGB 11.2 gm/dL (11.4-16.0); Lymphocytes # (A) 0.7 k/uL (1.0-4.8); Lymphocytes % (A) 6 %; MCH 28.7 pg (25.0-35.0); MCV 89.5 fL (80.0-100.0); Mean Platelet Volume 6.4; Monocytes # (A) 0.7 k/uL (0-1.0); Monocytes % (A) 7 %; Neutrophils # (A) 9.4 k/uL (1.3-7.7); Neutrophils % (A) 85 %; Platelet Count 130 k/uL (150-450); RDW 14.1 % (11.5-15.5); WBC 11.1 k/uL (3.8-10.6)
[2017-12-13 13:03] LABS: Calcium 8.5 mg/dL (8.4-10.2); Potassium 3.5 mmol/L (3.5-5.1)
[2017-12-13 14:54] VITALS: BP 137/66; PULSE 80; RESP 18; TEMP 97.4
[2017-12-13] MEDS ORDERED: metroNIDAZOLE-NS PMX 500 MG in SALINE 1 100ML.BAG IVPB SCH (16:00)
--- NOTE | 2017-12-13 16:17 | P.DS ---
Providers Date of admission: 12/13/17 02:40 Expected date of discharge: 12/13/17 Attending physician: Nita Buenrostro Primary care physician: Barrett Taveras Patient Condition at Discharge: Serious Plan - Discharge Summary Discharge Rx Participant: Yes New Discharge Prescriptions: New Levofloxacin [Levaquin] 500 mg PO DAILY #7 tab metroNIDAZOLE [Flagyl] 500 mg PO BID #14 tab No Action ALPRAZolam [Xanax] 0.25 mg PO DAILY PRN PRN Reason: Anxiety Levothyroxine Sodium [Synthroid] 88 mcg PO DAILY Irbesartan 75 mg PO DAILY Focus Macula Pro Vitamin 1 tab PO DAILY amLODIPine [Norvasc] 5 mg PO DAILY Atorvastatin [Lipitor] 20 mg PO DAILY Carvedilol [Coreg*] 12.5 mg PO HS hydrALAZINE HCL [Apresoline] 20 mg PO BID Carvedilol [Coreg*] 25 mg PO QAM [place] Oil 1 cap PO DAILY Cholecalciferol [Vitamin D3] 1,000 unit PO DAILY [place]-3 Fatty Acids/Fish Oil [Fish Oil 1,000 mg Softgel] 1 cap PO DAILY Aspirin EC [Ecotrin Low Dose] 81 mg PO DAILY Discharge Medication List ALPRAZolam [Xanax] 0.25 mg PO DAILY PRN 06/25/16 [History] Focus Macula Pro Vitamin 1 tab PO DAILY 06/25/16 [History] Irbesartan 75 mg PO DAILY 06/25/16 [History] Levothyroxine Sodium [Synthroid] 88 mcg PO DAILY 06/25/16 [History] amLODIPine [Norvasc] 5 mg PO DAILY 06/25/16 [History] Aspirin EC [Ecotrin Low Dose] 81 mg PO DAILY 12/13/17 [History] Atorvastatin [Lipitor] 20 mg PO DAILY 12/13/17 [History] Carvedilol [Coreg*] 12.5 mg PO HS 12/13/17 [History] Carvedilol [Coreg*] 25 mg PO QAM 12/13/17 [History] Cholecalciferol [Vitamin D3] 1,000 unit PO DAILY 12/13/17 [History] Levofloxacin [Levaquin] 500 mg PO DAILY #7 tab 12/13/17 [Rx] [place]-3 Fatty Acids/Fish Oil [Fish Oil 1,000 mg Softgel] 1 cap PO DAILY [History] [place] Oil 1 cap PO DAILY 12/13/17 [History] hydrALAZINE HCL [Apresoline] 20 mg PO BID 12/13/17 [History] metroNIDAZOLE [Flagyl] 500 mg PO BID #14 tab 12/13/17 [Rx] Follow up Appointment(s)/Referral(s): Barrett Taveras MD [Primary Care Provider] - 1-2 days Nita Buenrostro MD [STAFF PHYSICIAN] - 12/18/17 Patient Instructions/Handouts: Ischemic Colitis (DC) Activity/Diet/Wound Care/Special Instructions: Diet as tolerated. Discharge Disposition: HOME SELF-CARE
== END 2017-12-13 16:07 | disposition home or self-care (01) | DRG 392 ==
LOC: EC 22:09 → 3SUR 12-13 02:40
PROVIDERS: ADMIT Surgery Plastic and Reconstructive Surgery; ATTEND Surgery Plastic and Reconstructive Surgery
DX: K52.9 Noninfective gastroenteritis and colitis, unspecified (principal); I10 Essential (primary) hypertension; E07.9 Disorder of thyroid, unspecified; Z79.899 Other long term (current) drug therapy; Z88.1 Allergy status to other antibiotic agents; Z88.2 Allergy status to sulfonamides; Z88.8 Allergy status to other drugs, medicaments and biological substances; Z90.49 Acquired absence of other specified parts of digestive tract; Z82.49 Family history of ischemic heart disease and other diseases of the circulatory system; Z82.3 Family history of stroke
CPT/HCPCS: 36415; 74018; 74176; 80048; 80053; 81001; 82150; 82550; 82553; 83605; 83690; 84484; 85025; 85610; 85730; 87040; 93005; 96361; 96365; 96375; 99285

== ENCOUNTER → 2017-12-25 | Outpatient (CLI) | payer MEDICARE, BC ==
--- NOTE | 2017-12-25 14:01 | CT ---
EXAMINATION TYPE: CT abdomen pelvis wo con DATE OF EXAM: 12/25/2017 COMPARISON: 12/13/2017 HISTORY: Ulcerative colitis, chronic kidney disease CT DLP: 864 mGycm Examination of the solid and hollow viscera is limited given the lack of contrast. FINDINGS: LUNG BASES: No evidence for nodule. No evidence for infiltrate. Right basilar calcified granuloma LIVER/GB: Cholecystectomy clips are noted within place. No space-occupying hepatic lesion. PANCREAS: No pancreatic mass identified. No inflammatory process seen. SPLEEN: No evidence for splenomegaly. No intrasplenic lesions seen. ADRENALS: No adrenal nodules identified. No evidence for thickening. KIDNEYS: Renal parenchymal thinning seen bilaterally. No evidence for renal mass. No nephrolithiasis. No hydronephrosis. BOWEL: Inflammatory change posterior to the cecum is again noted although somewhat improved. This cou ld reflect focal colitis, diverticulitis. Appendicitis is not excluded however. No evidence for absce ss or perforation. Lymph nodes: No evidence for adenopathy greater than 1 cm. Abdominal aorta: Atheromatous changes seen. No evidence for aneurysm. Genital organs: No significant abnormality. Other: No significant abnormality. IMPRESSION: 1.Inflammatory change posterior to the cecum is again noted although somewhat improved. This could re flect focal colitis, diverticulitis. Appendicitis is not excluded however. 2. Mild renal parenchymal thinning. 3. Atheromatous and ectatic change of the abdominal aorta and iliac vessels.
== END | disposition home or self-care (01) ==
LOC: RADCTMAIN 11:50
PROVIDERS: ATTEND Surgery Plastic and Reconstructive Surgery
DX: I77.811 Abdominal aortic ectasia (principal); N28.89 Other specified disorders of kidney and ureter; I70.0 Atherosclerosis of aorta; Z88.1 Allergy status to other antibiotic agents; Z88.8 Allergy status to other drugs, medicaments and biological substances
CPT/HCPCS: 36415; 74176; 82565; 84520

== ENCOUNTER 2017-12-30 07:51 | Emergency (ER) | payer MEDICARE, BC ==
[2017-12-30 07:59] VITALS: RESP 18
[2017-12-30] MEDS ORDERED: SODIUM CHLORIDE 0.9% 500 ML IV STA (08:11)
--- NOTE | 2017-12-30 08:16 | ED ---
Abdominal Pain HPI - General Chief Complaint: Abdominal Pain Stated Complaint: Side Pain Time Seen by Provider: 12/30/17 08:03 Source: patient, family Mode of arrival: ambulatory Limitations: no limitations - History of Present Illness Initial Comments: 82-year-old female patient presents to emergency department today for evaluation of right-sided abdominal pain. Patient states that she was seen and evaluated for similar pain 2 weeks ago and was diagnosed with colitis. Patient states she was treated with Levaquin and her symptoms did improve somewhat. Patient states that last night her pain became worse so she presented here for further evaluation today. Patient denies any nausea or vomiting with this. Patient states that she has been having alternating constipation and diarrhea since this occurred. She denies any hematochezia or melena. Denies any hematuria, dysuria, urinary frequency, urinary urgency. Patient did have CT abdomen and pelvis without contrast on 12/25/2017 which did show inflammatory changes around the cecum that were slightly improved compared to computed tomography scan performed 2 weeks ago. Patient states that her kidney function has been abnormal as well. States that she has felt chilled this morning but denies any fever. Patient denies any recent rash, shortness breath, chest pain, back pain, numbness, tingling, dizziness, weakness, headache, visual changes, or any other complaints. - Related Data Home Medications Medication Instructions Recorded Confirmed ALPRAZolam [Xanax] 0.25 mg PO DAILY PRN 06/25/16 12/13/17 Focus Macula Pro Vitamin 1 tab PO DAILY 06/25/16 12/13/17 Irbesartan 75 mg PO DAILY 06/25/16 12/13/17 Levothyroxine Sodium [Synthroid] 88 mcg PO DAILY 06/25/16 12/13/17 amLODIPine [Norvasc] 5 mg PO DAILY 06/25/16 12/13/17 Aspirin EC [Ecotrin Low Dose] 81 mg PO DAILY 12/13/17 12/13/17 Atorvastatin [Lipitor] 20 mg PO DAILY 12/13/17 12/13/17 Carvedilol [Coreg*] 12.5 mg PO HS 12/13/17 12/13/17 Carvedilol [Coreg*] 25 mg PO QAM 12/13/17 12/13/17 Cholecalciferol [Vitamin D3] 1,000 unit PO DAILY 12/13/17 12/13/17 [place]-3 Fatty Acids/Fish Oil [Fish 1 cap PO DAILY 12/13/17 12/13/17 Oil 1,000 mg Softgel] [place] Oil 1 cap PO DAILY 12/13/17 12/13/17 hydrALAZINE HCL [Apresoline] 20 mg PO BID 12/13/17 12/13/17 Previous Rx's Medication Instructions Recorded Levofloxacin [Levaquin] 500 mg PO DAILY #7 tab 12/13/17 metroNIDAZOLE [Flagyl] 500 mg PO BID #14 tab 12/13/17 Allergies Allergy/AdvReac Type Severity Reaction Status Date / Time clindamycin Allergy Nausea & Verified 12/30/17 07:54 Vomiting & Diarrhea doxycycline Allergy Dizziness Verified 12/30/17 07:54 sulfamethoxazole Allergy Unknown Verified 12/30/17 07:54 [From Bactrim] trimethoprim [From Bactrim] Allergy Unknown Verified 12/30/17 07:54 CAMILO Inhibitors AdvReac Flushed Verified 12/30/17 07:54 Review of Systems ROS Statement: Those systems with pertinent positive or pertinent negative responses have been documented in the HPI. ROS Other: All systems not noted in ROS Statement are negative. Past Medical History Past Medical History: Hypertension, Thyroid Disorder History of Any Multi-Drug Resistant Organisms: None Reported Past Surgical History: Cholecystectomy, Orthopedic Surgery, Tonsillectomy Additional Past Surgical History / Comment(s): Left rotator cuff surgery; Thyroid Surgery Past Psychological History: No Psychological Hx Reported Smoking Status: Never smoker Past Alcohol Use History: None Reported Past Drug Use History: None Reported - Past Family History Mother Family Medical History: Congestive Heart Failure (CHF) Father Family Medical History: CVA/TIA General Exam Limitations: no limitations General appearance: alert, in no apparent distress, other (Some well-developed, well-nourished elderly female patient in no acute distress. Vital signs upon presentation are temperature 98.1F, pulse 82, respirations 18, blood pressure 168/72, pulse ox 96% on room air.) Eye exam: Present: normal appearance, PERRL, EOMI. Absent: scleral icterus, conjunctival injection, periorbital swelling ENT exam: Present: normal exam, normal oropharynx, mucous membranes moist Respiratory exam: Present: normal lung sounds bilaterally. Absent: respiratory distress, wheezes, rales, rhonchi, stridor Cardiovascular Exam: Present: regular rate, normal rhythm, normal heart sounds. Absent: systolic murmur, diastolic murmur, rubs, gallop, clicks GI/Abdominal exam: Present: soft, tenderness (Right mid abdomen tenderness. No tenderness at McBurney's point. No rebound or guarding. ), normal bowel sounds. Absent: distended, guarding, rebound, rigid Neurological exam: Present: alert, oriented X3, CN II-XII intact Psychiatric exam: Present: normal affect, normal mood Skin exam: Present: warm, dry, intact, normal color. Absent: rash Course Vital Signs 12/30/17 07:56 Temperature 98.1 F Pulse Rate 82 Respiratory 18 Rate Blood Pressure 168/72 O2 Sat by Pulse 96 Oximetry Medical Decision Making - Medical Decision Making 82-year-old female patient presented to the emergency department today for evaluation of right mid abdomen pain. Physical examination did reveal some right middle abdominal tenderness. No tenderness at McBurney's point. Labs reviewed and had a normal white blood cell count, kidney function was slightly improved compared to last check on 12/25. I did review CAT scan obtained on which did show some evidence of colitis slightly improved from computed tomography scan from 12/08/2017. I did discuss findings and results with the patient and the family. We did discuss that her pain today is most likely related to the colitis however we did discuss that I could not completely rule out appendicitis without performing computed tomography scan today. Family is comfortable being discharged home at this time to monitor symptoms. Patient is afebrile, wbc count normal, no peritoneal signs, so I feel comfortable with the discharge as well. Return parameters were discussed in detail. Instructed to follow-up with Dr. Buenrostro for recheck as soon as possible. They verbalize understanding and agree with this plan. - Lab Data Result diagrams: 12/30/17 08:21 12/30/17 08:21 Lab Results 12/30/17 12/30/17 12/30/17 Range/Units 08:21 08:21 08:21 WBC 7.9 (3.8-10.6) k/uL RBC 4.40 (3.80-5.40) m/uL Hgb 12.0 (11.4-16.0) gm/dL Hct 37.6 (34.0-46.0) % MCV 85.5 (80.0-100.0) fL MCH 27.3 (25.0-35.0) pg MCHC 32.0 (31.0-37.0) g/dL RDW 13.9 (11.5-15.5) % Plt Count 244 (150-450) k/uL Neutrophils % 76 % Lymphocytes % 10 % Monocytes % 6 % Eosinophils % 6 % Basophils % 0 % Neutrophils # 6.0 (1.3-7.7) k/uL Lymphocytes # 0.8 L (1.0-4.8) k/uL Monocytes # 0.5 (0-1.0) k/uL Eosinophils # 0.5 (0-0.7) k/uL Basophils # 0.0 (0-0.2) k/uL Sodium 141 (137-145) mmol/L Potassium 3.8 (3.5-5.1) mmol/L Chloride 107 (98-107) mmol/L Carbon Dioxide 26 (22-30) mmol/L Anion Gap 8 mmol/L BUN 31 H (7-17) mg/dL Creatinine 1.26 H (0.52-1.04) mg/dL Est GFR (CKD-EPI)AfAm 46 (>60 ml/min/1.73 sqM) Est GFR (CKD-EPI)NonAf 39 (>60 ml/min/1.73 sqM) Glucose 108 H (74-99) mg/dL Plasma Lactic Acid Edvin 0.8 (0.7-2.0) mmol/L Calcium 9.3 (8.4-10.2) mg/dL Total Bilirubin 0.6 (0.2-1.3) mg/dL AST 26 (14-36) U/L ALT 36 (9-52) U/L Alkaline Phosphatase 63 (38-126) U/L Total Protein 6.6 (6.3-8.2) g/dL Albumin 3.9 (3.5-5.0) g/dL Amylase 75 (30-110) U/L Lipase 259 (23-300) U/L Urine Color Urine Appearance (Clear) Urine pH (5.0-8.0) Ur Specific Chambers (1.001-1.035) Urine Protein (Negative) Urine Glucose (UA) (Negative) Urine Ketones (Negative) Urine Blood (Negative) Urine Nitrite (Negative) Urine Bilirubin (Negative) Urine Urobilinogen (<2.0) mg/dL Ur Leukocyte Esterase (Negative) Urine RBC (0-5) /hpf Urine WBC (0-5) /hpf Ur Squamous Epith Cells (0-4) /hpf Urine Mucus (None) /hpf 12/30/17 Range/Units 08:21 WBC (3.8-10.6) k/uL RBC (3.80-5.40) m/uL Hgb (11.4-16.0) gm/dL Hct (34.0-46.0) % MCV (80.0-100.0) fL MCH (25.0-35.0) pg MCHC (31.0-37.0) g/dL RDW (11.5-15.5) % Plt Count (150-450) k/uL Neutrophils % % Lymphocytes % % Monocytes % % Eosinophils % % Basophils % % Neutrophils # (1.3-7.7) k/uL Lymphocytes # (1.0-4.8) k/uL Monocytes # (0-1.0) k/uL Eosinophils # (0-0.7) k/uL Basophils # (0-0.2) k/uL Sodium (137-145) mmol/L Potassium (3.5-5.1) mmol/L Chloride (98-107) mmol/L Carbon Dioxide (22-30) mmol/L Anion Gap mmol/L BUN (7-17) mg/dL Creatinine (0.52-1.04) mg/dL Est GFR (CKD-EPI)AfAm (>60 ml/min/1.73 sqM) Est GFR (CKD-EPI)NonAf (>60 ml/min/1.73 sqM) Glucose (74-99) mg/dL Plasma Lactic Acid Edvin (0.7-2.0) mmol/L Calcium (8.4-10.2) mg/dL Total Bilirubin (0.2-1.3) mg/dL AST (14-36) U/L ALT (9-52) U/L Alkaline Phosphatase (38-126) U/L Total Protein (6.3-8.2) g/dL Albumin (3.5-5.0) g/dL Amylase (30-110) U/L Lipase (23-300) U/L Urine Color Light Yellow Urine Appearance Clear (Clear) Urine pH 6.0 (5.0-8.0) Ur Specific [place] 1.012 (1.001-1.035) Urine Protein Trace H (Negative) Urine Glucose (UA) Negative (Negative) Urine Ketones Negative (Negative) Urine Blood Negative (Negative) Urine Nitrite Negative (Negative) Urine Bilirubin Negative (Negative) Urine Urobilinogen <2.0 (<2.0) mg/dL Ur Leukocyte Esterase Trace H (Negative) Urine RBC 1 (0-5) /hpf Urine WBC 1 (0-5) /hpf Ur Squamous Epith Cells 1 (0-4) /hpf Urine Mucus Rare H (None) /hpf - Radiology Data Radiology results: report reviewed, image reviewed Two-view x-ray of the abdomen was obtained. The gallbladder has been removed. The abdominal gas pattern is normal. There is no evidence of obstruction or free air. There are phleboliths within the pelvis. There is moderate he was scoliosis. Impression by Dr. Mcgraw shows no acute intra-abdominal abnormality. Disposition Clinical Impression: Colitis, Abdominal pain Disposition: HOME SELF-CARE Condition: Good Instructions: Diet for Stomach Ulcers and Gastritis (ED), Abdominal Pain (ED), Colitis (ED) Additional Instructions: Increase fluids. Follow-up with Dr. Buenrostro as soon as possible. Return here immediately for any new, worsening, or concerning symptoms. Is patient prescribed a controlled substance at d/c from ED?: No Referrals: Barrett Taveras MD [Primary Care Provider] - 1-2 days Time of Disposition: 09:23
[2017-12-30 08:37] LABS: Basophils % (A) 0 %; Eosinophils # (A) 0.5 k/uL (0-0.7); Eosinophils % (A) 6 %; HCT 37.6 % (34.0-46.0); Lymphocytes # (A) 0.8 k/uL (1.0-4.8); Lymphocytes % (A) 10 %; MCH 27.3 pg (25.0-35.0); MCV 85.5 fL (80.0-100.0); Mean Platelet Volume 6.4; Monocytes # (A) 0.5 k/uL (0-1.0); Monocytes % (A) 6 %; Neutrophils % (A) 76 %; Platelet Count 244 k/uL (150-450); RDW 13.9 % (11.5-15.5); WBC 7.9 k/uL (3.8-10.6)
[2017-12-30 08:42] LABS: Appearance,Urine Clear (Clear); Bilirubin,Urine Negative (Negative); Blood,Urine Negative (Negative); Color,Urine Light Yellow; Glucose,Urine (UA) Negative (Negative); Ketones,Urine Negative (Negative); Leukocyte Esterase,Urine Trace (Negative); Mucus,Urine Rare /hpf; Nitrite,Urine Negative (Negative); Protein,Urine Trace (Negative); RBC,Urine 1 /hpf (0-5); Specific Gravity,Urine 1.012 (1.001-1.035); Squamous Epithelial Cell,Urine 1 /hpf (0-4); Urobilinogen,Urine <2.0 mg/dL (<2.0); WBC,Urine 1 /hpf (0-5)
[2017-12-30 08:44] LABS: Albumin 3.9 g/dL (3.5-5.0); Calcium 9.3 mg/dL (8.4-10.2); Potassium 3.8 mmol/L (3.5-5.1); Total Bilirubin 0.6 mg/dL (0.2-1.3); Total Protein 6.6 g/dL (6.3-8.2)
--- NOTE | 2017-12-30 08:53 | XR ---
EXAMINATION TYPE: XR KUB , 2 VIEWS DATE OF EXAM ORDERED: 12/30/2017 HISTORY: Pain. COMPARISON: Previous study dated 12/13/2017. FINDINGS: The lung bases are clear. Within the abdomen, the gallbladder is been removed. The abdominal gas pattern is normal. There is no evidence of obstruction or free air. There are phleboliths within the pelvis. There is a moderate le voscoliosis. IMPRESSION: NO ACUTE INTRA-ABDOMINAL ABNORMALITY.
[2017-12-30 09:27] VITALS: BP 168/77; PULSE 74; TEMP 97.1
== END 2017-12-30 09:31 | disposition home or self-care (01) ==
LOC: EC 07:51
DX: K52.9 Noninfective gastroenteritis and colitis, unspecified (principal); I10 Essential (primary) hypertension; E07.9 Disorder of thyroid, unspecified; Z79.82 Long term (current) use of aspirin; Z79.899 Other long term (current) drug therapy; Z88.1 Allergy status to other antibiotic agents; Z88.2 Allergy status to sulfonamides; Z88.8 Allergy status to other drugs, medicaments and biological substances; Z90.49 Acquired absence of other specified parts of digestive tract
CPT/HCPCS: 36415; 74018; 80053; 81001; 82150; 83605; 83690; 85025; 99284

== ENCOUNTER 2018-07-26 09:44 | Emergency (ER) | payer MEDICARE, BC ==
[2018-07-26 09:52] VITALS: RESP 18
--- NOTE | 2018-07-26 10:32 | ED ---
General Adult HPI - General Chief complaint: Recheck/Abnormal Lab/Rx Stated complaint: High BP Time Seen by Provider: 07/26/18 09:50 Source: patient, RN notes reviewed Mode of arrival: ambulatory Limitations: no limitations - History of Present Illness Initial comments: This is an 82-year-old female presents emergency Department complaining of her leg pressure being elevated. Patient states her blood pressure was 205 systolic this morning that was before she had taken her blood pressure meds. Patient states she has had no chest pain no difficulty breathing no shortness of breath. Patient denies any headache. Patient states she has had a pain on the left side of her neck posteriorly in the muscle which is been ongoing for about 2 weeks. Patient states it hurts to touch it hurts to twist her neck and it is keeping her up at night. Patient denies any recent fever chills or cough per patient denies any abdominal pain. Patient denies any lightheadedness dizziness or near syncopal episode. Patient denies any numbness or weakness. Patient's blood pressure is currently normal - Related Data Home Medications Medication Instructions Recorded Confirmed ALPRAZolam [Xanax] 0.25 mg PO DAILY PRN 06/25/16 07/26/18 Focus Macula Pro Vitamin 1 tab PO DAILY 06/25/16 07/26/18 Irbesartan 75 mg PO DAILY 06/25/16 07/26/18 Levothyroxine Sodium [Synthroid] 88 mcg PO DAILY 06/25/16 07/26/18 amLODIPine [Norvasc] 5 mg PO DAILY 06/25/16 07/26/18 Aspirin EC [Ecotrin Low Dose] 81 mg PO DAILY 12/13/17 07/26/18 Atorvastatin [Lipitor] 20 mg PO DAILY 12/13/17 07/26/18 Carvedilol [Coreg*] 12.5 mg PO HS 12/13/17 07/26/18 Carvedilol [Coreg*] 25 mg PO DAILY 12/13/17 07/26/18 Cholecalciferol [Vitamin D3] 1,000 unit PO DAILY 12/13/17 07/26/18 [place]-3 Fatty Acids/Fish Oil [Fish 1 cap PO DAILY 12/13/17 07/26/18 Oil 1,000 mg Softgel] [place] Oil 1 cap PO DAILY 12/13/17 07/26/18 hydrALAZINE HCL [Apresoline] 20 mg PO TID 12/13/17 07/26/18 Allergies Allergy/AdvReac Type Severity Reaction Status Date / Time cephalexin [From Keflex] Allergy Rash/Hives Verified 07/26/18 10:11 clindamycin Allergy Nausea & Verified 07/26/18 10:11 Vomiting & Diarrhea doxycycline Allergy Dizziness Verified 07/26/18 10:11 sulfamethoxazole Allergy Unknown Verified 07/26/18 10:11 [From Bactrim] trimethoprim [From Bactrim] Allergy Unknown Verified 07/26/18 10:11 CAMILO Inhibitors AdvReac Flushed Verified 07/26/18 10:11 Review of Systems ROS Statement: Those systems with pertinent positive or pertinent negative responses have been documented in the HPI. ROS Other: All systems not noted in ROS Statement are negative. Past Medical History Past Medical History: Hypertension, Thyroid Disorder History of Any Multi-Drug Resistant Organisms: None Reported Past Surgical History: Cholecystectomy, Orthopedic Surgery, Tonsillectomy Additional Past Surgical History / Comment(s): Left rotator cuff surgery; Thyroid Surgery Past Psychological History: No Psychological Hx Reported Smoking Status: Never smoker Past Alcohol Use History: None Reported Past Drug Use History: None Reported - Past Family History Mother Family Medical History: Congestive Heart Failure (CHF) Father Family Medical History: CVA/TIA General Exam - General Exam Comments Initial Comments: GENERAL: Patient is well-developed and well-nourished. Patient is nontoxic and well- hydrated and is in no acute distress. ENT: Neck is soft and supple. No significant lymphadenopathy is noted. Oropharynx is clear. Moist mucous membranes. Neck has full range of motion without eliciting any pain. EYES: The sclera were anicteric and conjunctiva were pink and moist. Extraocular movements were intact and pupils were equal round and reactive to light. Eyelids were unremarkable. PULMONARY: Unlabored respirations. Good breath sounds bilaterally. No audible rales rhonchi or wheezing was noted. CARDIOVASCULAR: There is a regular rate and rhythm without any murmurs gallops or rubs. ABDOMEN: Soft and nontender with normal bowel sounds. No palpable organomegaly was noted. There is no palpable pulsatile mass. SKIN: Skin is clear with no lesions or rashes and otherwise unremarkable. NEUROLOGIC: Patient is alert and oriented x3. Cranial nerves II through XII are grossly intact. Motor and sensory are also intact. Normal speech, volume and content. Symmetrical smile. MUSCULOSKELETAL: Normal extremities with adequate strength and full range of motion. No lower extremity swelling or edema. No calf tenderness. LYMPHATICS: No significant lymphadenopathy is noted PSYCHIATRIC: Patient is mildly anxious Limitations: no limitations Course Vital Signs 07/26/18 07/26/18 07/26/18 09:50 10:51 11:00 Temperature 97.8 F 97.7 F Pulse Rate 74 66 Respiratory 18 18 Rate Blood Pressure 158/82 140/72 147/78 O2 Sat by Pulse 98 98 Oximetry 07/26/18 07/26/18 11:20 11:48 Temperature Pulse Rate 65 Respiratory 18 Rate Blood Pressure 147/78 141/88 O2 Sat by Pulse Oximetry Medical Decision Making - Medical Decision Making EKG shows normal sinus rhythm at 60 bpm FL interval is 176 QRS is 78 QT interval 412 QTC is 438. Patient's EKG shows no ST segment elevation or depression or T wave abnormalities are noted. I will back and the patient was feeling better and her blood pressure come down considerably from 205 this morning and she was due to take her noon medications so she wanted to go home and take her medications and follow-up with her primary medical care doctor. Patient was also told by Dr. Morgan to Doppler hydralazine dose which she states she will do from on - Lab Data Result diagrams: 07/26/18 10:48 07/26/18 10:48 Lab Results 07/26/18 07/26/18 07/26/18 Range/Units 10:48 10:48 10:48 WBC 6.9 (3.8-10.6) k/uL RBC 4.44 (3.80-5.40) m/uL Hgb 12.2 (11.4-16.0) gm/dL Hct 38.7 (34.0-46.0) % MCV 87.2 (80.0-100.0) fL MCH 27.5 (25.0-35.0) pg MCHC 31.5 (31.0-37.0) g/dL RDW 14.3 (11.5-15.5) % Plt Count 167 (150-450) k/uL Neutrophils % 75 % Lymphocytes % 11 % Monocytes % 6 % Eosinophils % 7 % Basophils % 1 % Neutrophils # 5.2 (1.3-7.7) k/uL Lymphocytes # 0.7 L (1.0-4.8) k/uL Monocytes # 0.4 (0-1.0) k/uL Eosinophils # 0.5 (0-0.7) k/uL Basophils # 0.0 (0-0.2) k/uL Sodium 142 (137-145) mmol/L Potassium 3.8 (3.5-5.1) mmol/L Chloride 106 (98-107) mmol/L Carbon Dioxide 29 (22-30) mmol/L Anion Gap 7 mmol/L BUN 29 H (7-17) mg/dL Creatinine 1.11 H (0.52-1.04) mg/dL Est GFR (CKD-EPI)AfAm 53 (>60 ml/min/1.73 sqM) Est GFR (CKD-EPI)NonAf 46 (>60 ml/min/1.73 sqM) Glucose 150 H (74-99) mg/dL Calcium 9.3 (8.4-10.2) mg/dL Magnesium 2.2 (1.6-2.3) mg/dL Total Bilirubin 0.5 (0.2-1.3) mg/dL AST 20 (14-36) U/L ALT 23 (9-52) U/L Alkaline Phosphatase 62 (38-126) U/L Troponin I <0.012 (0.000-0.034) ng/mL Total Protein 6.8 (6.3-8.2) g/dL Albumin 3.9 (3.5-5.0) g/dL Disposition Clinical Impression: Hypertension, Neck strain Disposition: HOME SELF-CARE Condition: Good Instructions (If sedation given, give patient instructions): Hypertension (ED) , Cervical Strain (ED) Additional Instructions: Patient should take Motrin 4 mg 3 times a day for 3 days then twice a day for 3 days and then once a day for 3 days. Patient should take double dose of hydralazine. Is patient prescribed a controlled substance at d/c from ED?: No Referrals: Barrett Taveras MD [Primary Care Provider] - 1-2 days Time of Disposition: 12:52
[2018-07-26 11:10] LABS: Basophils % (A) 1 %; Eosinophils # (A) 0.5 k/uL (0-0.7); Eosinophils % (A) 7 %; HCT 38.7 % (34.0-46.0); HGB 12.2 gm/dL (11.4-16.0); Lymphocytes # (A) 0.7 k/uL (1.0-4.8); Lymphocytes % (A) 11 %; MCH 27.5 pg (25.0-35.0); MCHC 31.5 g/dL (31.0-37.0); MCV 87.2 fL (80.0-100.0); Monocytes # (A) 0.4 k/uL (0-1.0); Monocytes % (A) 6 %; Neutrophils # (A) 5.2 k/uL (1.3-7.7); Neutrophils % (A) 75 %; Platelet Count 167 k/uL (150-450); RBC 4.44 m/uL (3.80-5.40); RDW 14.3 % (11.5-15.5); WBC 6.9 k/uL (3.8-10.6)
[2018-07-26 11:22] LABS: Albumin 3.9 g/dL (3.5-5.0); Calcium 9.3 mg/dL (8.4-10.2); Magnesium 2.2 mg/dL (1.6-2.3); Potassium 3.8 mmol/L (3.5-5.1); Total Bilirubin 0.5 mg/dL (0.2-1.3); Total Protein 6.8 g/dL (6.3-8.2)
[2018-07-26] MEDS ORDERED: HYDROmorphone 0.5 MG/0.5 ML SYRINGE IVP STA (12:36)
[2018-07-26] MEDS ORDERED: methylPREDNISolone SOD SUCCI 125 MG/2 ML VIAL IV STA (12:37)
[2018-07-26] MEDS ORDERED: KETOROLAC 60 MG/2 ML VIAL IVP STA (12:44)
[2018-07-26] MEDS ORDERED: hydrALAZINE HCL 20 MG/ML 1 ML VIAL IVP STA ×2 (13:13→13:23)
[2018-07-26 14:46] VITALS: BP 139/71; PULSE 73; TEMP 98
== END 2018-07-26 14:15 | disposition home or self-care (01) ==
LOC: EC 09:44
DX: I10 Essential (primary) hypertension (principal); S16.1XXA Strain of muscle, fascia and tendon at neck level, initial encounter; E07.9 Disorder of thyroid, unspecified; Z79.82 Long term (current) use of aspirin; Z79.02 Long term (current) use of antithrombotics/antiplatelets; Z79.890 Hormone replacement therapy; Z79.899 Other long term (current) drug therapy; Z88.1 Allergy status to other antibiotic agents; Z88.2 Allergy status to sulfonamides; Z88.8 Allergy status to other drugs, medicaments and biological substances; X58.XXXA Exposure to other specified factors, initial encounter
CPT/HCPCS: 96374 ×2; 96375 ×2; 99283 ×2; 36415; 93005; 80053; 83735; 84484; 85025; J0360; J1885

== ENCOUNTER 2018-07-31 21:12 | Emergency (ER) | payer MEDICARE, BC ==
[2018-07-31 21:20] VITALS: RESP 20; TEMP 99
--- NOTE | 2018-08-01 00:06 | ED ---
General Adult HPI - General Chief complaint: Recheck/Abnormal Lab/Rx Stated complaint: High BP Time Seen by Provider: 07/31/18 23:35 Source: patient, family Mode of arrival: ambulatory Limitations: no limitations - History of Present Illness Initial comments: This is an 82-year-old female who presents emergency department for high blood pressure at home. She states that she had a blood pressure reading of 210/100. She became concerned so she came to the emergency department. She states that she's been having issues controlling her blood pressure at home for the last week and a half. She did see Dr. Morgan about a week and a half ago who told her to double up on her hydralazine 3 times a day. She states that she was worried to do it this way and that she's been taking 10 mg of hydralazine every 4 hours throughout the day. She states that she has also been taking her heart rate all 3 times a day instead of 2 tabs in the morning and 1 at night. She states that she does not have any chest pain or shortness of breath. No focal neurologic complaints. She does have a "whooshing" sound in her head at times however no severe headache. She denies any other acute complaints. - Related Data Home Medications Medication Instructions Recorded Confirmed ALPRAZolam [Xanax] 0.25 mg PO DAILY PRN 06/25/16 07/26/18 Focus Macula Pro Vitamin 1 tab PO DAILY 06/25/16 07/26/18 Irbesartan 75 mg PO DAILY 06/25/16 07/26/18 Levothyroxine Sodium [Synthroid] 88 mcg PO DAILY 06/25/16 07/26/18 amLODIPine [Norvasc] 5 mg PO DAILY 06/25/16 07/26/18 Aspirin EC [Ecotrin Low Dose] 81 mg PO DAILY 12/13/17 07/26/18 Atorvastatin [Lipitor] 20 mg PO DAILY 12/13/17 07/26/18 Carvedilol [Coreg*] 12.5 mg PO HS 12/13/17 07/26/18 Carvedilol [Coreg*] 25 mg PO DAILY 12/13/17 07/26/18 Cholecalciferol [Vitamin D3] 1,000 unit PO DAILY 12/13/17 07/26/18 [place]-3 Fatty Acids/Fish Oil [Fish 1 cap PO DAILY 12/13/17 07/26/18 Oil 1,000 mg Softgel] [place] Oil 1 cap PO DAILY 12/13/17 07/26/18 hydrALAZINE HCL [Apresoline] 20 mg PO TID 12/13/17 07/26/18 Allergies Allergy/AdvReac Type Severity Reaction Status Date / Time cephalexin [From Keflex] Allergy Rash/Hives Verified 07/31/18 21:20 clindamycin Allergy Nausea & Verified 07/31/18 21:20 Vomiting & Diarrhea doxycycline Allergy Dizziness Verified 07/31/18 21:20 sulfamethoxazole Allergy Unknown Verified 07/31/18 21:20 [From Bactrim] trimethoprim [From Bactrim] Allergy Unknown Verified 07/31/18 21:20 CAMILO Inhibitors AdvReac Flushed Verified 07/31/18 21:20 Review of Systems ROS Statement: Those systems with pertinent positive or pertinent negative responses have been documented in the HPI. ROS Other: All systems not noted in ROS Statement are negative. Past Medical History Past Medical History: Hypertension, Thyroid Disorder Additional Past Medical History / Comment(s): colitis History of Any Multi-Drug Resistant Organisms: None Reported Past Surgical History: Cholecystectomy, Orthopedic Surgery, Tonsillectomy Additional Past Surgical History / Comment(s): Left rotator cuff surgery; Thyroid Surgery Past Psychological History: No Psychological Hx Reported Smoking Status: Never smoker Past Alcohol Use History: None Reported Past Drug Use History: None Reported - Past Family History Mother Family Medical History: Congestive Heart Failure (CHF) Father Family Medical History: CVA/TIA General Exam - General Exam Comments Initial Comments: Constitutional: Awake alert Appears comfortable Head: Normocephalic atraumatic Eyes: no conjunctival injection No scleral icterus EOMI Neck: No JVD Supple Heart: Regular rate rhythm normal S1-S2 no murmurs Lungs: Clear to auscultation bilaterally No wheezing No rales Abdomen: Soft nondistended nontender Extremities: Non edematous DP pulses intact Radial pulses intact Neuro: A&Ox3, cranial nerves II through XII are grossly intact, 5 out of 5 strength in upper and lower extremities bilaterally, sensation intact to light touch No focal neurologic deficits Psych: Appropriate mood and affect Limitations: no limitations Course Vital Signs 07/31/18 08/01/18 21:15 00:00 Temperature 99 F Pulse Rate 80 74 Respiratory 20 Rate Blood Pressure 174/90 196/99 O2 Sat by Pulse 96 96 Oximetry Medical Decision Making - Medical Decision Making This is an 82-year-old female who presented for high blood pressure. Blood pressure here was noted to be elevated however not emergently so. The patient had no emergent findings on clinical examination. I had a long discussion with the patient and family about the proper way to take her blood pressure medications and instructions on how to keep a log of her blood pressures at home. I told her that I would not make any acute adjustments at this time. She is going to take an extra dose of 10 mg hydralazine when she gets home and call Dr. hdz on in the morning for further evaluation and possible blood pressure medication adjustment. Can return if she develops severe headache, chest pain, focal neurologic findings, or any other concerning symptoms. All questions answered. Disposition Clinical Impression: Hypertension Disposition: HOME SELF-CARE Condition: Stable Instructions (If sedation given, give patient instructions): Hypertension (ED) Is patient prescribed a controlled substance at d/c from ED?: No Referrals: Barrett Taveras MD [Primary Care Provider] - 1-2 days
[2018-08-01 00:10] VITALS: BP 196/99; PULSE 74
== END 2018-08-01 00:14 | disposition home or self-care (01) ==
LOC: EC 21:12
DX: I10 Essential (primary) hypertension (principal); E07.9 Disorder of thyroid, unspecified; Z79.82 Long term (current) use of aspirin; Z79.890 Hormone replacement therapy; Z79.899 Other long term (current) drug therapy; Z88.2 Allergy status to sulfonamides; Z88.1 Allergy status to other antibiotic agents; Z88.8 Allergy status to other drugs, medicaments and biological substances
CPT/HCPCS: 99282

== ENCOUNTER 2021-03-06 20:32 | Observation (INO) | payer MEDICARE, BC ==
[2021-03-06] MEDS ORDERED: HEPARIN SODIUM 1,000 UN/ML (10ML VL) IV ONE (22:26)
[2021-03-06] MEDS ORDERED: NITROGLYCERIN SL TABS 0.4 MG TAB SUBLINGUAL PRN (22:26)
--- NOTE | 2021-03-06 22:26 | ED ---
General Adult HPI - General Chief complaint: Cardiac Arrest/CPR Stated complaint: Chest Pain Time Seen by Provider: 03/06/21 20:44 Source: patient, RN/MD, EMS, RN notes reviewed, old records reviewed Mode of arrival: EMS - History of Present Illness Initial comments: 85-year-old female transferred from [facility] for evaluation of chest pain. She's been having bouts of chest pain and become more frequent today currently pain-free at this time initial cardiac enzymes were within normal limits. She is ever prior history of heart disease. No other complaints this time initial workup began was within normal limits she will did demonstrate elevated blood pressure was normalized after time. She denies any other complaints this time. - Related Data Home Medications Medication Instructions Recorded Confirmed ALPRAZolam [Xanax] 0.25 mg PO DAILY PRN 06/25/16 07/26/18 Focus Macula Pro Vitamin 1 tab PO DAILY 06/25/16 07/26/18 Irbesartan 75 mg PO DAILY 06/25/16 07/26/18 Levothyroxine Sodium [Synthroid] 88 mcg PO DAILY 06/25/16 07/26/18 amLODIPine [Norvasc] 5 mg PO DAILY 06/25/16 07/26/18 Aspirin EC [Ecotrin Low Dose] 81 mg PO DAILY 12/13/17 07/26/18 Atorvastatin [Lipitor] 20 mg PO DAILY 12/13/17 07/26/18 Cholecalciferol [Vitamin D3] 1,000 unit PO DAILY 12/13/17 07/26/18 [place]-3 Fatty Acids/Fish Oil [Fish 1 cap PO DAILY 12/13/17 07/26/18 Oil 1,000 mg Softgel] [place] Oil 1 cap PO DAILY 12/13/17 07/26/18 carvediloL [Coreg*] 12.5 mg PO HS 12/13/17 07/26/18 carvediloL [Coreg*] 25 mg PO DAILY 12/13/17 07/26/18 hydrALAZINE HCL [Apresoline] 20 mg PO TID 12/13/17 07/26/18 Allergies Allergy/AdvReac Type Severity Reaction Status Date / Time cephalexin [From Keflex] Allergy Rash/Hives Verified 07/31/18 21:20 clindamycin Allergy Nausea & Verified 07/31/18 21:20 Vomiting & Diarrhea doxycycline Allergy Dizziness Verified 07/31/18 21:20 sulfamethoxazole Allergy Unknown Verified 07/31/18 21:20 [From Bactrim] trimethoprim [From Bactrim] Allergy Unknown Verified 07/31/18 21:20 CAMILO Inhibitors AdvReac Flushed Verified 07/31/18 21:20 Review of Systems ROS Statement: Those systems with pertinent positive or pertinent negative responses have been documented in the HPI. ROS Other: All systems not noted in ROS Statement are negative. Past Medical History Past Medical History: Hypertension, Thyroid Disorder Additional Past Medical History / Comment(s): colitis History of Any Multi-Drug Resistant Organisms: None Reported Past Surgical History: Cholecystectomy, Orthopedic Surgery, Tonsillectomy Additional Past Surgical History / Comment(s): Left rotator cuff surgery; Thyroid Surgery Past Psychological History: No Psychological Hx Reported Past Alcohol Use History: None Reported Past Drug Use History: None Reported - Past Family History Mother Family Medical History: Congestive Heart Failure (CHF) Father Family Medical History: CVA/TIA General Exam - General Exam Comments Initial Comments: This is a well-developed well-nourished awake alert oriented 3 female General appearance: alert, in no apparent distress Head exam: Present: atraumatic, normocephalic, normal inspection Eye exam: Present: normal appearance, PERRL, EOMI. Absent: scleral icterus, conjunctival injection, periorbital swelling ENT exam: Present: normal exam, mucous membranes moist Neck exam: Present: normal inspection. Absent: tenderness, meningismus, lymphadenopathy Respiratory exam: Present: normal lung sounds bilaterally. Absent: respiratory distress, wheezes, rales, rhonchi, stridor Cardiovascular Exam: Present: regular rate, normal rhythm, normal heart sounds. Absent: systolic murmur, diastolic murmur, rubs, gallop, clicks GI/Abdominal exam: Present: soft, normal bowel sounds. Absent: distended, tenderness, guarding, rebound, rigid Extremities exam: Present: normal inspection, full ROM, normal capillary refill. Absent: tenderness, pedal edema, joint swelling, calf tenderness Back exam: Present: normal inspection Neurological exam: Present: alert, oriented X3, CN II-XII intact Psychiatric exam: Present: normal affect, normal mood Skin exam: Present: warm, dry, intact, normal color. Absent: rash Course Vital Signs 03/06/21 03/06/21 20:36 22:18 Temperature 98.3 F Pulse Rate 70 63 Respiratory 20 20 Rate Blood Pressure 186/89 107/55 O2 Sat by Pulse 93 L 97 Oximetry EKG Findings - EKG Results: EKG: interpreted by CHICHI ESPINO, sinus rhythm, normal axis, normal QRS, normal ST/T, no acute changes (Normal sinus rhythm a 68. Interval 166 QRS 76 QT since QTC 4:30/[address]-T wave changes) Medical Decision Making - Medical Decision Making Materials from [facility] reviewed and did discuss the initial contact with the ER physician at that facility the patient be admitted he states is discussed with Dr. Acevedo cardiology will be consulted Disposition Clinical Impression: Unstable angina Disposition: ADMITTED IP TO THIS HOSP Condition: Stable Referrals: Marcelina Brito MD [Primary Care Provider] - 1-2 days
[2021-03-06] MEDS ORDERED: ALPRAZolam 0.25 MG TAB PO PRN (22:28)
[2021-03-06] MEDS ORDERED: HEPARIN SOD,PORK IN 0.45% NACL 25,000 UNIT in 0.45% NACL 1 250ML.BAG IV SCH (22:30)
[2021-03-06] MEDS ORDERED: SODIUM CHLORIDE 0.9% 1,000 ML IV SCH (22:30)
[2021-03-07] MEDS: NITROGLYCERIN OINT 1 INCH/GM PACKET TOPICAL SCH ×2 (01:21→05:03)
[2021-03-07] MEDS ORDERED: LEVOTHYROXINE 88 MCG TAB PO SCH (06:30)
[2021-03-07] MEDS ORDERED: PANTOPRAZOLE 40 MG TABLET PO SCH (08:00)
[2021-03-07 08:23] VITALS: BP 167/82; PULSE 66; RESP 18; TEMP 98.3
[2021-03-07] MEDS ORDERED: hydrALAZINE HCL 10 MG TAB PO ONE (08:30)
[2021-03-07] MEDS ORDERED: ASPIRIN 81 MG PO SCH (09:00)
[2021-03-07] MEDS ORDERED: LOSARTAN 25 MG TAB PO SCH (09:00)
[2021-03-07] MEDS ORDERED: ASPIRIN 325 MG TAB PO SCH (09:00)
[2021-03-07] MEDS ORDERED: hydrALAZINE HCL 10 MG TAB PO SCH (09:00)
[2021-03-07] MEDS ORDERED: CHOLECALCIFEROL 25 MCG (1000 IU) TABLET PO SCH (09:00)
[2021-03-07] MEDS ORDERED: ATORVASTATIN 20 MG TAB PO SCH (09:00)
[2021-03-07] MEDS ORDERED: carvediloL 12.5 MG TAB PO SCH ×5 (09:00→21:00)
[2021-03-07] MEDS ORDERED: amLODIPine 5 MG TAB PO SCH (09:00)
[2021-03-07] MEDS ORDERED: CAFFEINE CITRATE 60 MG/3 ML VIAL IV PRN (10:22)
[2021-03-07] MEDS ORDERED: AMINOPHYLLINE 500 MG/20 ML VIAL IV PRN (10:22)
[2021-03-07] MEDS ORDERED: REGADENOSON 0.4 MG/5 ML SYRINGE IV PRN (10:22)
[2021-03-07] MEDS ORDERED: CYANOCOBALAMIN 500 MCG TAB PO SCH (10:30)
[2021-03-07 10:38] LABS: Chol/HDL Ratio 2.82 Ratio; HDL Cholesterol 53.9 mg/dL (40.00-60.00); LDL Cholesterol,Calculated 77.1 mg/dL (0.0-131.0)
--- NOTE | 2021-03-07 11:06 | P.CRDCN ---
History of Present Illness History of present illness: HISTORY OF PRESENTING ILLNESS This is a pleasant 85-year-old female past medical history significant for hypertension, dyslipidemia, chronic kidney disease and colitis. She follows in the office with Dr. Morgan. We have been asked to see in consultation for chest pain. She presented to [facility] with symptoms of chest discomfort that have been intermittent and ongoing since Sunday of last week. Initially the symptoms were very brief in nature described as a sharp pain that lasted less than a minute. There was no radiation, shortness of breath, dizziness or palpitations. However as the weekend when on her symptoms became more frequent and more intense in nature. This morning she woke up with ongoing discomfort in the midsternal region that is not reproducible by palpation or deep inspiration. She was given Protonix and achieved no relief of her dis comfort. The nurse had the patient get up and ambulating the halls and her pain remained consistent and possibly a little worse. She did undergo cardiac catheterization in 2000 revealing mild nonobstructive coronary artery disease. Most recent stress test performed in the office with a Lexiscan stress test in 2018 was negative for reversibility. Most recent echocardiogram obtained April 2020 in the office revealed preserved LV systolic function with ejection fraction 55-60% with mild tricuspid regurgitation and mild mitral regurgitation. DIAGNOSTICS EKG reveals sinus mechanism heart rate of 68. Telemetry tracings indicate sinus rhythm. Laboratory reviewed, cardiac enzymes negative 2. LDL 77 and HDL 53. Current cardiac medications include atorvastatin 20 mg every other day, hydrala zine 50 mg in the afternoon and 25 mg twice a day, amlodipine 5 mg daily, Coreg 25 mg at bedtime and 12.5 mg at lunch and aspirin 81 mg every other day. REVIEW OF SYSTEMS At the time of my exam: CONSTITUTIONAL: Denies fever or chills. CARDIOVASCULAR: Complains of chest pain. Denies shortness of breath, orthopnea, PND or palpitations. RESPIRATORY: Denies cough. GASTROINTESTINAL: Denies abdominal pain, diarrhea, constipation, nausea or vomiting. MUSCULOSKELETAL: Denies myalgias. NEUROLOGIC: Denies numbness, tingling, headache or weakness. ENDOCRINE: Denies fatigue, weight change, polydipsia or polyurina. GENITOURINARY: Denies burning, hematuria or urgency with micturation. HEMATOLOGIC: Denies history of anemia or bleeding. PHYSICAL EXAMINATION Blood pressure 167/82 heart rate 66 afebrile and maintaining oxygen saturation on room air. CONSTITUTIONAL: No apparent distress. HEENT: Head is normocephalic. Pupils are equal, round. Sclerae anicteric. Mucous membranes of the mouth are moist. No JVD. No carotid bruit. CHEST EXAMINATION: Lungs are clear to auscultation. No chest wall tenderness is noted on palpation or with deep breathing. HEART EXAMINATION: Regular rate and rhythm. S1, S2 heard. No murmurs, gallops or rub. ABDOMEN: Soft, nontender. EXTREMITIES: 2+ peripheral pulses, no lower extremity edema and no calf tenderness. NEUROLOGIC EXAMINATION: Patient is awake, alert and oriented x3. ASSESSMENT Chest pain Hypertension Dyslipidemia Chronic kidney disease PLAN An acute coronary event has been ruled out. Discontinue heparin infusion. Protonix did not relieve her pain. Therefore, we will proceed with a lexiscan stress test to assess for reversible ischemia. If stress test is normal she can be discharged home to follow up with Dr. Morgan in the office. If abnormal we will consider coronary angiography depending on renal function. Thank you kindly for this consultation. Nurse Practitioner note has been reviewed, I agree with a documented findings and plan of care. Patient was seen and examined. Past Medical History Past Medical History: Cancer, Hyperlipidemia, Hypertension, Thyroid Disorder Additional Past Medical History / Comment(s): colitis,CKD stage 3, wears 2.5l of oxygen at night, skin Ca on face and right arm History of Any Multi-Drug Resistant Organisms: None Reported Past Surgical History: Cholecystectomy, Orthopedic Surgery, Tonsillectomy Additional Past Surgical History / Comment(s): Left rotator cuff surgery; Thyroid Surgeryx2, skin cancer removed from face and right arm, breast cyst removed bilateral breasts. bilateral cataract sx. right eye retina sx. Past Anesthesia/Blood Transfusion Reactions: Postoperative Nausea & Vomiting (PONV) Past Psychological History: Anxiety Smoking Status: Never smoker Past Alcohol Use History: None Reported Past Drug Use History: None Reported - Past Family History Mother Family Medical History: Congestive Heart Failure (CHF) Father Family Medical History: CVA/TIA Medications and Allergies Home Medications Medication Instructions Recorded Confirmed Type ALPRAZolam [Xanax] 0.25 mg PO DAILY PRN 06/25/16 03/06/21 History Levothyroxine Sodium [Synthroid] 88 mcg PO DAILY 06/25/16 03/06/21 History amLODIPine [Norvasc] 5 mg PO HS 06/25/16 03/06/21 History Aspirin EC [Ecotrin Low Dose] 81 mg PO Q48H 12/13/17 03/06/21 History Atorvastatin [Lipitor] 20 mg PO Q48H 12/13/17 03/06/21 History carvediloL [Coreg*] 12.5 mg PO W/LUNCH 12/13/17 03/06/21 History Carvedilol [Coreg] 25 mg PO HS 03/06/21 03/06/21 History Cholecalciferol [Vitamin D3 (25 25 mcg PO DAILY 03/06/21 03/06/21 History Mcg = 1000 Iu)] Cyanocobalamin (Vitamin B-12) 1,000 mcg PO DAILY 03/06/21 03/06/21 History [Vitamin B-12] Vit C/E/Zn/Coppr/Lutein/Zeaxan 2 cap PO DAILY 03/06/21 03/06/21 History [Preservision Areds 2 Softgel] hydrALAZINE HCL 25 mg PO BID 03/06/21 03/06/21 History hydrALAZINE HCL 50 mg PO DAILY@1600 03/06/21 03/06/21 History Allergies Allergy/AdvReac Type Severity Reaction Status Date / Time cephalexin [From Keflex] Allergy Rash/Hives Verified 03/06/21 22:46 clindamycin Allergy Nausea & Verified 03/06/21 22:46 Vomiting & Diarrhea doxycycline Allergy Dizziness Verified 03/06/21 22:46 sulfamethoxazole Allergy Unknown Verified 03/06/21 22:46 [From Bactrim] trimethoprim [From Bactrim] Allergy Unknown Verified 03/06/21 22:46 CAMILO Inhibitors AdvReac Flushed Verified 03/06/21 22:46 Physical Exam Vitals: Vital Signs Temp Pulse Pulse Resp BP BP Pulse Ox 03/07/21 04:00 94 158/72 03/07/21 00:37 97.9 F 72 16 183/84 94 L 03/07/21 00:02 73 20 164/96 95 03/06/21 22:18 63 20 107/55 97 03/06/21 20:36 98.3 F 70 20 186/89 93 L Intake and Output 03/06/21 03/07/21 03/07/21 22:59 06:59 14:59 Other: Voiding Method Toilet # Voids 2 Weight 66.224 kg 66.224 kg Results Cardiac Enzymes 03/06/21 03/07/21 Range/Units 22:40 01:16 Troponin I <0.012 <0.012 (0.000-0.034) ng/mL Coagulation 03/07/21 Range/Units 05:15 APTT 60.0 H (22.0-30.0) sec Current Medications Generic Name Dose Route Start Last Admin Trade Name Freq PRN Reason Stop Dose Admin Alprazolam 0.25 mg 03/06/21 22:28 Alprazolam 0.25 Mg Tab PO DAILY PRN Anxiety Amlodipine Besylate 5 mg 03/07/21 09:00 Amlodipine 5 Mg Tab PO DAILY [facility] Aspirin 81 mg 03/07/21 09:00 Aspirin 81 Mg PO DAILY [facility] Atorvastatin Calcium 20 mg 03/07/21 09:00 Atorvastatin 20 Mg Tab PO DAILY [facility] Carvedilol 12.5 mg 03/07/21 21:00 Carvedilol 12.5 Mg Tab PO HS [facility] Carvedilol 25 mg 03/07/21 09:00 Carvedilol 12.5 Mg Tab PO DAILY [facility] Cholecalciferol 25 mcg 03/07/21 09:00 Cholecalciferol 25 Mcg (1000 Iu) Tablet PO DAILY [facility] Hydralazine HCl 20 mg 03/07/21 09:00 Hydralazine Hcl 10 Mg Tab PO TID [facility] Sodium Chloride 1,000 mls @ 20 mls/hr 03/06/21 22:30 03/07/21 01:21 Saline 0.9% IV 20 mls/hr .Q24H [facility] Administration Levothyroxine Sodium 88 mcg 03/07/21 06:30 03/07/21 06:04 Levothyroxine 88 Mcg Tab PO 88 mcg DAILY@0630 [facility] Administration Losartan Potassium 25 mg 03/07/21 09:00 Losartan 25 Mg Tab PO DAILY [facility] Nitroglycerin 0.4 mg 03/06/21 22:26 Nitroglycerin Sl Tabs 0.4 Mg Tab SUBLINGUAL Q5M PRN Chest Pain Pantoprazole Sodium 40 mg 03/07/21 08:00 Pantoprazole 40 Mg Tablet PO AC-BRKFST [facility] Intake and Output 10/03/21 10/04/21 10/04/21 22:59 06:59 14:59 Other: Voiding Method Toilet # Voids 2 Weight 66.224 kg 66.224 kg
[2021-03-07 12:13] LABS: Potassium 3.6 mmol/L (3.5-5.1)
[2021-03-07 12:16] LABS: African American GFR (CKD) 65 (>60 ml/min/1.73 sqM); Anion Gap 5 mmol/L; Blood Urea Nitrogen 25 mg/dL (7-17); Calcium 9.3 mg/dL (8.4-10.2); Carbon Dioxide 29 mmol/L (22-30); Chloride 105 mmol/L (98-107); Glucose 90 mg/dL (74-99); Non-African American GFR(CKD) 56 (>60 ml/min/1.73 sqM); Sodium 139 mmol/L (137-145)
--- NOTE | 2021-03-07 13:19 | P.STRESS ---
- Stress Test Note Stress Test Results/Findings: Exam Performed: NM stress lexiscan cardiolite Exam Date: 03/07/21 Reason for Exam: Chest Pain Height: 5 ft 6 in Weight: 66.22 kg Protocol: Lexiscan Stage: na Duration of Exercise: na Resting Heart Rate: 66 Resting Blood Pressure: 160/99 Maximum Achieved Heart Rate: 98 Maximum Achieved Blood Pressure: 160/99 85% PMHR: 114 100% PMHR: 134 METS: na Technologist Comment: Stress Test Results/Findings: At baseline EKG showed normal sinus rhythm, normal axis, no significant ST or T wave abnormalities. Patient recieved IV infusion of Lexiscan 0.4mg and at peak infusion EKG showed no significant change from baseline. Conclusions: 1. Normal EKG response to Lexiscan infusion 2. Nuclear imaging to be reported separately.
--- NOTE | 2021-03-07 14:25 | NM ---
EXAMINATION TYPE: NM stress lexiscan cardiolite DATE OF EXAM: 03/07/2021 COMPARISON: NONE HISTORY: Chest pain. History of hypertension and hypercholesterolemia. TECHNIQUE: After the intravenous administration of 10.3 mCi Tc 99m Sestamibi - Cardiolite resting SP ECT images acquired 45 minutes post injection. The patient received 0.4mg Lexiscan, 25.1 mCi Tc 99m Sestamibi - Stress images obtained [address] injection FINDINGS: Review of stress and rest SPECT images demonstrates small area of diminished uptake on rest and stres s images in the lateral mid left ventricular wall. Possible small old infarct versus artifact. No rev ersible ischemia is evident. Gated analysis shows normal wall motion with an estimated left ventricu lar ejection fraction of 61 % during stress imaging. IMPRESSION: No scintigraphic evidence for reversible ischemia.
[2021-03-07] MEDS ORDERED: hydrALAZINE HCL 50 MG TAB PO SCH (16:00)
--- NOTE | 2021-03-07 19:39 | P.HPIM ---
History of Present Illness H&P Date: 03/07/21 Chief Complaint: Chest discomfort History of presenting complaint: This is a pleasant 85-year-old patient who follows with Dr. Ruth Brito. Chronic stable medical conditions include hyperlipidemia, hypertension, hypothyroid, chronic kidney disease stage III, 2.5 L of oxygen at night, skin cancer of the face and right arm, anxiety. 4 days ago patient noticed some chest discomfort in the middle of the chest it was fleeting for a few seconds. [place] okay. Yesterday it came back to be more frequent. No dizziness no lightheadedness. No shortness breath. Some perspiration. Patient has arthritic pain in the lower back. Does not sleep too well. Otherwise fairly active. Review of systems: GEN.: Tired EYES: None HEENT: None NECK: None RESPIRATORY: None CARDIOVASCULAR: As above GASTROINTESTINAL: None GENITOURINARY: None MUSCULOSKELETAL: Joint pains including the back LYMPHATICS: None HEMATOLOGICAL: None PSYCHIATRY: Anxious NEUROLOGICAL: None Past medical history to include: Face and skin cancer that was removed, , (uses oxygen at night, hypothyroid, hypertension, hyperlipidemia, anxiety Social history: . Does not smoke or drink alcohol. Family history: Congestive heart failure Physical examination: VITAL SIGNS: 98.3, 70, 20, 164/96, 95% on room air GENERAL: BMI 23.6, laying in bed, awake, comfortable. EYES: Pupils equal. Conjunctiva normal. HEENT: External appearance of nose and ears normal, oral cavity grossly normal. NECK: JVD not raised; masses not palpable. HEART: First and second heart sounds are normal; no edema. LUNGS: Respiratory rate normal; clear to auscultation. ABDOMEN: Soft, nontender, liver spleen not palpable, no masses palpable. PSYCH: Alert and oriented x3; mood and affect normal. NEUROLOGICAL: Cranial nerves grossly intact; no facial asymmetry, power and sensation grossly intact. MUSCULAR skeletal: Evidence of OA LYMPHATICS: No lymph nodes palpable in the axilla and neck INVESTIGATIONS, reviewed in the clinical context: Potassium 3.6 BUN 25 creatinine 0.93 Troponin I 2 negative LDL 77 Coronavirus [PCR]: Not not detected EKG tracing personally reviewed by me-normal sinus rhythm, rate 65/m Assessment and plan: -Atypical anterior chest wall pain. Cardiac risk factors include postmenopausal , hypertension, hyperlipidemia. Cardiac enzymes are negative. Cardiology consulted they wanted a stress test -Hyperlipidemia Lipitor 20 mg every 48 hour -Essential hypertension Coreg 12.5 by mouth with lunch, hydralazine 25 mg twice a day Coreg 25 mg daily at bedtime Norvasc 5 mg daily at bedtime hydralazine 50 mg at 4 PM -Hypothyroid Synthroid 88 g a day -Anxiety not otherwise specified Xanax 0.25 by mouth daily when necessary Home medications resumed. Telemetry. Cardiology consulted. Stress test is been ordered. Care was discussed with the patient. Past Medical History Past Medical History: Cancer, Hyperlipidemia, Hypertension, Thyroid Disorder Additional Past Medical History / Comment(s): colitis,CKD stage 3, wears 2.5l of oxygen at night, skin Ca on face and right arm History of Any Multi-Drug Resistant Organisms: None Reported Past Surgical History: Cholecystectomy, Orthopedic Surgery, Tonsillectomy Additional Past Surgical History / Comment(s): Left rotator cuff surgery; Thyroid Surgeryx2, skin cancer removed from face and right arm, breast cyst removed bilateral breasts. bilateral cataract sx. right eye retina sx. Past Anesthesia/Blood Transfusion Reactions: Postoperative Nausea & Vomiting (PONV) Past Psychological History: Anxiety Smoking Status: Never smoker Past Alcohol Use History: None Reported Past Drug Use History: None Reported - Past Family History Mother Family Medical History: Congestive Heart Failure (CHF) Father Family Medical History: CVA/TIA Medications and Allergies Home Medications Medication Instructions Recorded Confirmed Type ALPRAZolam [Xanax] 0.25 mg PO DAILY PRN 06/25/16 03/06/21 History Levothyroxine Sodium [Synthroid] 88 mcg PO DAILY 06/25/16 03/06/21 History amLODIPine [Norvasc] 5 mg PO HS 06/25/16 03/06/21 History Aspirin EC [Ecotrin Low Dose] 81 mg PO Q48H 12/13/17 03/06/21 History Atorvastatin [Lipitor] 20 mg PO Q48H 12/13/17 03/06/21 History carvediloL [Coreg*] 12.5 mg PO W/LUNCH 12/13/17 03/06/21 History Carvedilol [Coreg] 25 mg PO HS 03/06/21 03/06/21 History Cholecalciferol [Vitamin D3 (25 25 mcg PO DAILY 03/06/21 03/06/21 History Mcg = 1000 Iu)] Cyanocobalamin (Vitamin B-12) 1,000 mcg PO DAILY 03/06/21 03/06/21 History [Vitamin B-12] Vit C/E/Zn/Coppr/Lutein/Zeaxan 2 cap PO DAILY 03/06/21 03/06/21 History [Preservision Areds 2 Softgel] hydrALAZINE HCL 25 mg PO BID 03/06/21 03/06/21 History hydrALAZINE HCL 50 mg PO DAILY@1600 03/06/21 03/06/21 History Allergies Allergy/AdvReac Type Severity Reaction Status Date / Time cephalexin [From Keflex] Allergy Rash/Hives Verified 03/06/21 22:46 clindamycin Allergy Nausea & Verified 03/06/21 22:46 Vomiting & Diarrhea doxycycline Allergy Dizziness Verified 03/06/21 22:46 sulfamethoxazole Allergy Unknown Verified 03/06/21 22:46 [From Bactrim] trimethoprim [From Bactrim] Allergy Unknown Verified 03/06/21 22:46 CAMILO Inhibitors AdvReac Flushed Verified 03/06/21 22:46 Physical Exam Vitals: Vital Signs Temp Pulse Pulse Resp BP BP Pulse Ox 03/07/21 08:00 66 18 03/07/21 07:00 98.3 F 66 18 167/82 95 03/07/21 04:00 94 158/72 03/07/21 00:37 97.9 F 72 16 183/84 94 L 03/07/21 00:02 73 20 164/96 95 03/06/21 22:18 63 20 107/55 97 03/06/21 20:36 98.3 F 70 20 186/89 93 L Intake and Output 03/06/21 03/07/21 03/07/21 22:59 06:59 14:59 Other: Voiding Method Toilet Toilet # Voids 2 Weight 66.224 kg 66.224 kg Results CBC & Chem 7: 03/07/21 11:18 Labs: Abnormal Lab Results - Last 24 Hours (Table) 03/07/21 Range/Units 05:15 APTT 60.0 H (22.0-30.0) sec Thrombosis Risk Factor Assmnt - Choose All That Apply Any of the Below Risk Factors Present?: No Other Risk Factors: Yes Each Risk Factor Represents 3 Points: Age 75 years or older Other congenital or acquired thrombophilia - If yes, enter type in comment: No Thrombosis Risk Factor Assessment Total Risk Factor Score: 3 Thrombosis Risk Factor Assessment Level: Moderate Risk
--- NOTE | 2021-03-07 19:44 | P.DS ---
Providers Date of admission: 03/06/21 22:27 Expected date of discharge: 03/07/21 Attending physician: Aravind Acevedo Consults: 03/06/21 22:27 Consult Physician Urgent Consulting Provider: Tammi Morgan Consult Reason/Comments: Chest pain Do you want consulting provider notified?: Yes, Notify in am Primary care physician: Marcelina Brito [facility] Course: Chief Complaint: Chest discomfort History of presenting complaint: This is a pleasant 85-year-old patient who follows with Dr. Ruth Brito. Chronic stable medical conditions include hyperlipidemia, hypertension, hypothyroid, chronic kidney disease stage III, 2.5 L of oxygen at night, skin cancer of the face and right arm, anxiety. 4 days ago patient noticed some chest discomfort in the middle of the chest it was fleeting for a few seconds. [place] okay. Yesterday it came back to be more frequent. No dizziness no lightheadedness. No shortness breath. Some perspiration. Patient has arthritic pain in the lower back. Does not sleep too well. Otherwise fairly active. EKG unremarkable. Troponin is negative. Nuclear stress test: Negative for ischemia. Patient cleared by cardiology for discharge Consultation: Dr. Mcduffie from cardiology Past medical history to include: Face and skin cancer that was removed, , (uses oxygen at night, hypothyroid, hypertension, hyperlipidemia, anxiety Social history: . Does not smoke or drink alcohol. Family history: Congestive heart failure Physical examination: VITAL SIGNS: 98.3, 70, 20, 164/96, 95% on room air GENERAL: BMI 23.6, laying in bed, awake, comfortable. EYES: Pupils equal. Conjunctiva normal. HEENT: External appearance of nose and ears normal, oral cavity grossly normal. NECK: JVD not raised; masses not palpable. HEART: First and second heart sounds are normal; no edema. LUNGS: Respiratory rate normal; clear to auscultation. ABDOMEN: Soft, nontender, liver spleen not palpable, no masses palpable. PSYCH: Alert and oriented x3; mood and affect normal. MUSCULAR skeletal: Evidence of OA INVESTIGATIONS, reviewed in the clinical context: Lexiscan stress test: Negative for ischemia Potassium 3.6 BUN 25 creatinine 0.93 Troponin I 2 negative LDL 77 Coronavirus [PCR]: Not not detected EKG tracing personally reviewed by me-normal sinus rhythm, rate 65/m Assessment and plan: -Atypical anterior chest wall pain. Cardiac risk factors include postmenopausal, hypertension, hyperlipidemia. Cardiac enzymes are negative. Possibly musculoskeletal Lexiscan stress test negative for ischemia -Hyperlipidemia Lipitor 20 mg every 48 hour -Essential hypertension Coreg 12.5 by mouth with lunch, hydralazine 25 mg twice a day Coreg 25 mg daily at bedtime Norvasc 5 mg daily at bedtime hydralazine 50 mg at 4 PM -Hypothyroid Synthroid 88 g a day -Anxiety not otherwise specified Xanax 0.25 by mouth daily when necessary Disposition: Home Plan - Discharge Summary Discharge Rx Participant: No New Discharge Prescriptions: No Action ALPRAZolam [Xanax] 0.25 mg PO DAILY PRN PRN Reason: Anxiety Levothyroxine Sodium [Synthroid] 88 mcg PO DAILY amLODIPine [Norvasc] 5 mg PO HS Atorvastatin [Lipitor] 20 mg PO Q48H carvediloL [Coreg*] 12.5 mg PO W/LUNCH Aspirin EC [Ecotrin Low Dose] 81 mg PO Q48H Vit C/E/Zn/Coppr/Lutein/Zeaxan [Preservision Areds 2 Softgel] 2 cap PO DAILY Cyanocobalamin (Vitamin B-12) [Vitamin B-12] 1,000 mcg PO DAILY Cholecalciferol [Vitamin D3 (25 Mcg = 1000 Iu)] 25 mcg PO DAILY hydrALAZINE HCL 50 mg PO DAILY@1600 Carvedilol [Coreg] 25 mg PO HS hydrALAZINE HCL 25 mg PO BID Discharge Medication List ALPRAZolam [Xanax] 0.25 mg PO DAILY PRN 06/25/16 [History] Levothyroxine Sodium [Synthroid] 88 mcg PO DAILY 06/25/16 [History] amLODIPine [Norvasc] 5 mg PO HS 06/25/16 [History] Aspirin EC [Ecotrin Low Dose] 81 mg PO Q48H 12/13/17 [History] Atorvastatin [Lipitor] 20 mg PO Q48H 12/13/17 [History] carvediloL [Coreg*] 12.5 mg PO W/LUNCH 12/13/17 [History] Carvedilol [Coreg] 25 mg PO HS 03/06/21 [History] Cholecalciferol [Vitamin D3 (25 Mcg = 1000 Iu)] 25 mcg PO DAILY 03/06/21 [History] Cyanocobalamin (Vitamin B-12) [Vitamin B-12] 1,000 mcg PO DAILY 03/06/21 [History] Vit C/E/Zn/Coppr/Lutein/Zeaxan [Preservision Areds 2 Softgel] 2 cap PO DAILY [History] hydrALAZINE HCL 25 mg PO BID 03/06/21 [History] hydrALAZINE HCL 50 mg PO DAILY@1600 03/06/21 [History] Follow up Appointment(s)/Referral(s): Tammi Morgan MD [STAFF PHYSICIAN] - 04/04/21 3:15 pm (@ [facility]. ) Marcelina Brito MD [Primary Care Provider] - 1-2 days Patient Instructions/Handouts: Chest Pain (DC)
[2021-03-07] MEDS ORDERED: hydrALAZINE HCL 25 MG TAB PO SCH (21:00)
[2021-03-08] MEDS ORDERED: carvediloL 12.5 MG TAB PO SCH (09:00)
== END 2021-03-07 15:00 ==
LOC: EC 20:32 → 6NMEDSUR 22:27
PROVIDERS: ADMIT Hospitalist; ATTEND Hospitalist
DX: R07.89 Other chest pain (principal); I25.10 Atherosclerotic heart disease of native coronary artery without angina pectoris; I12.9 Hypertensive chronic kidney disease with stage 1 through stage 4 chronic kidney disease, or unspecified chronic kidney disease; N18.30 Chronic kidney disease, stage 3 unspecified; E03.9 Hypothyroidism, unspecified; F41.9 Anxiety disorder, unspecified; E78.5 Hyperlipidemia, unspecified; I08.1 Rheumatic disorders of both mitral and tricuspid valves; M47.816 Spondylosis without myelopathy or radiculopathy, lumbar region; Z20.822 Contact with and (suspected) exposure to COVID-19; Z79.82 Long term (current) use of aspirin; Z79.890 Hormone replacement therapy; Z79.899 Other long term (current) drug therapy; Z88.1 Allergy status to other antibiotic agents; Z88.2 Allergy status to sulfonamides; Z88.8 Allergy status to other drugs, medicaments and biological substances; Z90.49 Acquired absence of other specified parts of digestive tract; Z87.19 Personal history of other diseases of the digestive system; Z85.828 Personal history of other malignant neoplasm of skin; Z98.42 Cataract extraction status, left eye; Z98.41 Cataract extraction status, right eye; Z98.890 Other specified postprocedural states; Z82.49 Family history of ischemic heart disease and other diseases of the circulatory system; Z82.3 Family history of stroke
CPT/HCPCS: 96376; 96366; 96365; 99285; 93005; 93017; 80061; 80048; 84484 ×2; 85730; 87635; 78452; G0378 ×2; A9500; J1644 ×2; J2785